=== PATIENT | female | born 1965 | race Caucasian/White ===

== ENCOUNTER 2019-11-16 14:25 | Outpatient (CLI) | payer MEDICAID, SELFPAY ==
[2019-11-16 15:54] LABS: Hemoglobin A1C 6.1 % (<5.7)
== END 2019-11-16 14:26 | disposition home or self-care (01) ==
LOC: ANHLAB 14:27
PROVIDERS: PCP Family Medicine; Visit Provider Family Medicine
DX: E11.9 Type 2 diabetes mellitus without complications (principal)
CPT/HCPCS: 36415; 83036

== ENCOUNTER 2019-12-03 14:32 | Outpatient (CLI) | payer MEDICAID, SELFPAY ==
--- NOTE | ~2019-12-03 | MR_ITS ---
EXAMINATION: MR brain/brain stem wo con EXAM DATE: 12/03/2019 15:23 INDICATION: Gait abnormality. TECHNIQUE: Magnetic resonance imaging (MRI) of the brain/brain stem obtained without contrast. Sagitt al T1, axial diffusion, gradient echo (T2*), T1, T2, FLAIR sequences obtained. There is no prior st udy for comparison. FINDINGS: Several small white matter T2 signal hyperintensities probably minimal microangiopathy. The re are no areas of restricted diffusion to suggest acute infarction. There is no acute hemorrhage se en on the T2*, a hemosiderin sensitive sequence. No intraparenchymal brain mass. The ventricles are normal in size. There are no extra-axial collections. Flow voids are seen in the cerebral arteries on the T2-weighted sequences consistent with their expected patency. The orbits are unremarkable. S oft tissue is unremarkable. Small left maxillary sinus retention cyst. IMPRESSION: Several small nonspecific white matter signal hyperintensities most likely minimal microa ngiopathy. Reviewed, dictated and finalized at location A. [employer] IMPRESSION: Several small nonspecific white matter signal hyperintensities most likely minimal microangiopathy.
== END 2019-12-03 14:33 | disposition home or self-care (01) ==
PROVIDERS: PCP Family Medicine; Visit Provider Family Medicine
DX: R26.89 Other abnormalities of gait and mobility (principal); R41.3 Other amnesia
CPT/HCPCS: 70551

== ENCOUNTER 2021-01-04 12:01 | Emergency (ER) | payer MEDICAID, SELFPAY ==
--- NOTE | ~2021-01-04 | XR_ITS ---
EXAMINATION: XR chest 1V portable DATE: 01/04/2021 12:29 INDICATION: Body aches TECHNIQUE: frontal view of the chest was obtained. COMPARISON: Chest radiograph dated 05/05/2015 FINDINGS: Minimal streaky angular atelectasis at the left costophrenic angle. No other airspace opacities, pulm onary edema, pleural effusion or pneumothorax. The cardiomediastinal silhouette is normal. Mild thora cic spondylosis. IMPRESSION: 1. Mild lingular atelectasis. Reviewed, dictated and finalized at location A.
[2021-01-04 12:03] VITALS: BP 142/70; PULSE 83; RESP 20; TEMP 36.6; O2SAT 99
--- NOTE | 2021-01-04 12:27 | ED.GENADULT ---
HPI - General Adult General Chief complaint: Unspecified Stated complaint: not feeling well Time Seen by Provider: 01/04/21 12:16 Source: patient Mode of arrival: ambulatory Limitations: no limitations History of Present Illness HPI narrative: Patient is 55 years old white female drove herself to the emergency room, complaining of general body aches, started 7 days ago, worse lately. Patient reports her symptoms get worse with standing and better at rest. Patient denies any fever, chills, nausea, vomiting, diarrhea, chest pain, shortness of breath, exposure to anybody having similar symptoms, exposure to anybody with COVID-19 infection. Related Data Allergies Allergy/AdvReac Type Severity Reaction Status Date / Time latex Allergy Intermediate RASH,ITCHIN Verified 01/04/21 12:09 G Review of Systems Review of Systems: Narrative: CONSTITUTIONAL: Denies fever, chills, or sweats. EYES: Denies visual changes, redness, or discharge. ENT: Denies rhinorrhea, congestion, sore throat, or otalgia. CARDIOVASCULAR: Denies chest pain, palpitations, or edema. RESPIRATORY: Denies cough or dyspnea. GASTROINTESTINAL: Denies abdominal pain, nausea, vomiting, or diarrhea. GENITOURINARY: Denies dysuria or hematuria. SKIN: Denies rash or itching. MUSCULOSKELETAL: Denies back pain, joint pain, or myalgia. NEUROLOGIC: Denies headache, numbness, or weakness. PSYCHIATRIC: Denies anxiety or depression. PMFSH Surgical History Surgical History History of bilateral mastectomy (~11/24/15) History of hysterectomy History of tonsillectomy Hx of cholecystectomy Family History Family History Father Diabetes mellitus Mother Diabetes mellitus Other Hypertension Social History Social History Smoking status: Never smoker Alcohol intake: never Exam Narrative: Exam Narrative: General appearance: Well-developed, well-nourished Skin: Normal color Head: Normocephalic, nontraumatic Eyes: Clear conjunctiva ENT: Oropharynx normal, ears normal, nose normal, left lower wisdom tooth impacted surrounded by erythematous gum and diffuse tenderness, no abscess. Neck: Supple, nontender Chest and respiratory: Airway patent, no respiratory distress, no accessory muscle use Heart: Regular rate/rhythm Abdomen: Soft, nontender, no organomegaly, quiet bowel sounds Vascular: Normal peripheral pulses, normal capillary refill. 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 Physical exam showed infected left lower wisdom tooth which high likely the underlying cause of patient's symptoms. Labs, chest x-ray, UA ordered. Further plan to follow Differential Diagnosis Differential Diagnosis: Infected tooth, viral infection, urinary tract infection, depression Vital Signs Vital Signs: Vital Signs Temperature 36.6 C 01/04/21 12:03 Pulse Rate 83 01/04/21 12:03 Respir
[2021-01-04 12:42] LABS: Basophils Percent Auto 0.6 % (0.2-1.2); Eosinophils Absolute Auto 0.1 K/mm3 (0-0.3); Hematocrit 41.9 % (37.0-47.0); Immature Granulocyte Absolute 0.04 K/mm3 (0.00-0.031); Immature Granulocyte Percent A 0.6 % (0-0.5); Lymphocytes Absolute Auto 2.49 K/mm3 (0.9-3.2); Lymphocytes Percent Auto 39.1 % (18.3-44.2); Mean Corpuscular HGB Conc 33.4 g/dl (32-36); Mean Corpuscular Hemoglobin 28.7 pg (26-34); Mean Corpuscular Volume 85.9 fl (80-100); Mean Platelet Volume 9.4 fl (7.4-10.4); Monocytes Absolute Auto 0.4 K/mm3 (0.1-0.6); Neutrophils Absolute Auto 3.3 K/mm3 (1.3-6.7); Neutrophils Percent Auto 51.7 % (45.5-73.1); Platelet Count Result 262 k/mm3 (150-375); Red Blood Count 4.88 M/mm3 (4.2-5.4); Red Cell Distribution Width 12.1 % (11.5-14.5); White Blood Count 6.4 K/mm3 (4.5-10.0)
[2021-01-04 12:56] LABS: Potassium 3.6 mmol/L (3.4-5.0)
[2021-01-04 12:59] LABS: Add Urine Microscopic? YES; Appearance Urine Clear (Clear); Bacteria Urine Trace /hpf; Bilirubin Urine Negative (Negative); Blood Urine Negative (Negative); Color Urine Yellow (Yellow); Glucose Urine UA Negative (Negative); Ketones Urine Negative (Negative); Leukocyte Esterase Ur Trace LEU/UL (Negative); Mucus Urine Moderate /lpf; Nitrate Urine Negative (Negative); Protein Urine Negative (Negative); RBC Urine 0-2 /hpf (0-2); Specific Grav Ur 1.017 (1.001-1.035); Squamous Epithelial Cell Urine Rare /hpf (Few); Urobilinogen Urine Negative mg/dL (<2.0); WBC Urine 0-3 /hpf
[2021-01-04 13:19] LABS: Alanine Aminotransferase 20 U/L (4-35); Albumin Level 4.3 g/dL (3.5-5.1); Alkaline Phosphatase 70 U/L (38-126); Anion Gap 8 mmol/L (8-16); Aspartate Amino Transferase 26 U/L (14-36); Bilirubin,Total 0.6 mg/dL (0.2-1.3); Blood Urea Nitrogen 13 mg/dL (7-17); Calcium 9.7 mg/dL (8.4-10.2); Carbon Dioxide 25 mmol/L (22-30); Chloride 108 mmol/L (98-107); Estimated CRCL calculation 91 ml/min; Estimated Glomerular Filt Rate > 60; Glucose 179 mg/dL (65-105); Sodium 141 mmol/L (137-145)
[2021-01-04 13:38] VITALS: BP 139/86; PULSE 88; RESP 17; O2SAT 98
== END 2021-01-04 13:52 | disposition home or self-care (01) ==
PROVIDERS: Emergency Provider Emergency Medicine; PCP Family Medicine
DX: K04.7 Periapical abscess without sinus (principal); Z90.13 Acquired absence of bilateral breasts and nipples
CPT/HCPCS: 36415; 71045; 80053; 81001; 85025; 99283

== ENCOUNTER 2021-03-01 15:05 | Emergency (ER) | payer MEDICAID, SELFPAY ==
--- NOTE | 2021-03-01 15:19 | ED.DENTAL ---
HPI - Dental/Oral General Chief complaint: Dental/Oral Stated complaint: Mouth complaint Source: patient and RN notes reviewed Limitations: no limitations History of Present Illness HPI Narrative: The patient, non-smoker/nondrinker with a pending trip to [place], presents with tooth ache. Patient states last week she had bilateral wisdom tooth extractions, for which she was given oxycodone [that she did not take, concerned about side effects]. She complains of a couple day history of definite left lower jaw swelling and pain that is mild, worse with eating, asymmetric/unlike other side. No fever, hoarseness, trismus; discussed should follow-up with dentist [inc for dry socket]. Also, will provide milder pain medication. Related Data Allergies Allergy/AdvReac Type Severity Reaction Status Date / Time latex Allergy Intermediate RASH,ITCHIN Verified 01/04/21 12:09 G Review of Systems Review of Systems: Narrative: General/Constitutional: No weight loss,fever Eyes: N0: Redness,discharge Ears/Nose/Throat: No: Epistaxis,ear discharge Respiratory: Denies: Hemoptysis Gastrointestinal: No Vomiting, Bleeding-rectal Skin: No Lumps, eruption Neurologic: No Focal Weakness,Sz Hematologic: Denies: Petechiae/Purpura Psychiatric: No: Suicida ideationl All Other Systems: Reviewed and Negative [facility] Surgical History Surgical History History of bilateral mastectomy (~11/24/15) History of hysterectomy History of tonsillectomy Hx of cholecystectomy Family History Family History Father Diabetes mellitus Mother Diabetes mellitus Other Hypertension Social History Social History Smoking status: Never smoker Alcohol intake: never Comments At time of signature, agree with nursing past medical, surgical, social and family history. There is no relevant family history pertinent to the presenting complaint Exam Narrative: Exam Narrative: General Appearance: Well appearing, , Conjunctiva clear Ears: External ear normal, Auditory canal normal Nose: Normal nose Mouth/Throat: Nl appearing (with mild left lower jaw swelling, no dry socket seen), Normal lips, MM moist, Uvula midline (scattered dental caries and fillings,) Neck: Supple, No adenopathy Respiratory: Airway patent, No respiratory distress, Musculoskeletal: Full ROM, Non tender, Normal strength Spine/Back: Normal ROM Skin: Warm, Dry, Normal color Neurological: A&O x3, Speech clear, CN II-XII intact Psychiatric: Normal mood, dulled affect Course Vital Signs Vital signs: Vital Signs Temperature 98.3 F 03/01/21 15:20 Pulse Rate 87 03/01/21 15:20 Respiratory Rate 16 03/01/21 15:20 Blood Pressure 130/76 03/01/21 15:20 Pulse Oximetry 99 03/01/21 15:20 Temperature 98.3 F 03/01/21 15:20 Pulse Rate 87 03/01/21 15:20 Respiratory Rate 16 03/01/21 15:20 Blood Pressure 130/76 03/01/21 15:20 Pulse Oximetry 99 03/01/21 15:20 Discharge Plan Discharge Clinical Impression: Toothache Patient Disposition: Home, Self-Care Condition: Stable Instructions: Antibiotic Form, Toothache (ED) Additional Instructions: See your dentist in follow-up Do not take Tylenol with codeine with any other opiate-like medications [oxycodone, Vicodin, hydrocodone, etc.] Prescriptions: New acetaminophen-codeine 300-30 mg tablet 1 tablet PO HS PRN (Reason: pain) Qty: 10 RF: 0 lidocaine HCl [Lidocaine Viscous] 2 % solution 5 ml MUCOUS MEM QID PRN (Reason: pain) Qty: 100 RF: 0 amoxicillin 875 mg tablet 875 mg PO Q12H Qty: 14 RF: 0 No Action metformin 500 mg tablet extended release 24 hr 500 mg PO DAILY Qty: 30 RF: 6 paroxetine HCl 20 mg tablet See Rx Instructions .ROUTE .COMPLEX Qty: 180 RF: 0 trazodone 50 mg tablet See Rx Instructions .
[2021-03-01 15:20] VITALS: BP 130/76; PULSE 87; RESP 16; TEMP 36.8; O2SAT 99
== END 2021-03-01 15:27 | disposition home or self-care (01) ==
PROVIDERS: Emergency Provider Emergency Medicine; PCP Family Medicine
DX: K08.89 Other specified disorders of teeth and supporting structures (principal); Z90.13 Acquired absence of bilateral breasts and nipples; G47.30 Sleep apnea, unspecified; E11.9 Type 2 diabetes mellitus without complications; F41.9 Anxiety disorder, unspecified; F32.9 Major depressive disorder, single episode, unspecified
CPT/HCPCS: 99213; G0463

== ENCOUNTER 2021-03-13 16:08 | Outpatient (CLI) | payer MEDICAID, SELFPAY ==
[2021-03-13 16:45] LABS: Cholesterol 178 mg/dL (0-200); HDL Direct 60 mg/dL; Triglycerides 229 mg/dL (<150)
[2021-03-13 16:56] LABS: LDL Cholesterol Direct 80 mg/dL
[2021-03-13 17:53] LABS: Hemoglobin A1C 5.9 % (<5.7)
== END 2021-03-13 16:09 | disposition home or self-care (01) ==
LOC: ANHLAB 16:10
PROVIDERS: PCP Family Medicine; Visit Provider Family Medicine
DX: E11.8 Type 2 diabetes mellitus with unspecified complications (principal)
CPT/HCPCS: 36415; 80061; 83036

== ENCOUNTER → 2021-05-08 06:56 | Outpatient (CLI) | payer MEDICAID, SELFPAY ==
[2021-05-08 17:52] LABS: SARS-CoV-2 RNA PCR Negative
== END ==
PROVIDERS: PCP Family Medicine; Visit Provider Family Medicine
DX: J02.9 Acute pharyngitis, unspecified (principal); R05 Cough; R51.9 Headache, unspecified; Z20.822 Contact with and (suspected) exposure to COVID-19
CPT/HCPCS: C9803; U0003; U0005

== ENCOUNTER 2021-09-14 15:04 | Outpatient (CLI) | payer MEDICAID, SELFPAY ==
[2021-09-14 15:44] LABS: Hemoglobin A1C 5.9 % (<5.7)
== END 2021-09-14 15:05 | disposition home or self-care (01) ==
PROVIDERS: PCP Family Medicine; Visit Provider Family Medicine
DX: E11.8 Type 2 diabetes mellitus with unspecified complications (principal)
CPT/HCPCS: 36415; 83036

== ENCOUNTER 2022-03-12 15:41 | Outpatient (CLI) | payer MEDICAID, SELFPAY | END 2022-03-12 15:42 | disposition home or self-care (01) | LOC: ANHLAB 15:42 | PROVIDERS: PCP Family Medicine; Visit Provider Family Medicine | DX: Z51.81 Encounter for therapeutic drug level monitoring (principal); Z79.899 Other long term (current) drug therapy; E11.8 Type 2 diabetes mellitus with unspecified complications | CPT/HCPCS: 36415; 83036 ==

== ENCOUNTER 2022-11-14 17:57 | Emergency (ER) | payer MEDICAID, SELFPAY ==
--- NOTE | 2022-11-14 18:03 | ED.URI ---
HPI - URI/Sore Throat General Chief Complaint: Upper Respiratory Infection Stated Complaint: cold/flu Source: patient and RN notes reviewed Mode of arrival: ambulatory Limitations: no limitations History of Present Illness HPI Narrative: 57-year-old female presents with concern for headache, sore throat, runny nose, body aches, cough. She reports she was exposed to COVID, she took a COVID test today that was negative. MD elicited complaint: cough and sore throat Related Data Allergies Allergy/AdvReac Type Severity Reaction Status Date / Time latex Allergy Intermediate RASH,ITCHIN Verified 02/08/22 14:55 G Review of Systems Review of Systems: CONSTITUTIONAL: Reports malaise, low-grade fever. EYES: Denies visual changes, redness, or discharge. ENT: Reports rhinorrhea, congestion, sore throat. Denies sinus pain, otalgia CARDIOVASCULAR: Denies chest pain, palpitations, or edema. RESPIRATORY: Reports cough. Denies dyspnea. GASTROINTESTINAL: Denies abdominal pain, nausea, vomiting, diarrhea SKIN: Denies rash or itching. MUSCULOSKELETAL: Reports myalgia. NEUROLOGIC: Reports headache. All systems reviewed & are unremarkable except as noted in HPI and below [facility] Surgical History Surgical History History of bilateral mastectomy (~11/24/15) History of hysterectomy History of tonsillectomy Hx of cholecystectomy Family History Family History Father Diabetes mellitus Mother Diabetes mellitus Other Hypertension Social History Social History Alcohol intake: never Comments At time of signature, agree with nursing past medical, surgical, social and family history. There is no relevant family history pertinent to the presenting complaint Exam Narrative: GENERAL: Nontoxic-appearing EYES: PERRLA, conjunctivae clear ENT: Nares clear, clear discharge. Mucous membranes moist. TM pearly duke with dull light reflex bilaterally; no tragal tenderness. Oropharynx erythematous without lesions. Tonsils not enlarged and without exudate, no drooling, no hoarseness, no trismus, uvula midline. NECK: Supple. No lymphadenopathy CHEST: Clear to auscultation, breath sounds equal. No wheezing, rhonchi, rales, or stridor. No respiratory distress, speaks in full sentences. HEART: Regular rate and rhythm. No murmur heard. SKIN: Warm, dry, no rash. NEURO: Alert and oriented x3. PSYCH: Normal mood and affect Course Course Emergency Course: Patient is aware of diagnosis, understands and agrees to treatment plan. Anticipatory guidance given. Patient agrees to follow-up as directed and is aware of reasons to seek care at the emergency department. Portions of this record may have been created with voice recognition software Level of Care: Express Care Visit Vital Signs Vital signs: Reviewed. MDM - URI/Sore Throat MDM Narrative Medical decision making narrative: Differential diagnosis considered: Irizarry virus, strep pharyngitis, allergic rhinitis, upper respiratory tract infection, sinusitis, rhinosinusitis, nasopharyngitis. viral pharyngitis, otitis media, otitis externa, pneumonia, bronchitis, viral cough syndrome, viral syndrome, and influenza. Exam findings show no acute concerns or changes; patient is non-toxic appearing and is in no distress. Patient is appropriate for outpatient treatment and follow-up. Lab Data Attestation: I reviewed the patient's lab results. Critical Care Time Critical Care Time Critical Care Time: No Discharge Plan Discharge Clinical Impression: Upper respiratory infection Patient Disposition: Home, Self-Care Condition: Stable Instructions: Upper Respiratory Infection (ED) Additional Instructions: Your rapid influenza test negative. Because you are exposed to COVID, you should retest yourself 5 days after exposure. Your r
[2022-11-14 18:06] VITALS: BP 138/84; PULSE 85; RESP 16; TEMP 37.1; O2SAT 98
== END 2022-11-14 18:40 | disposition home or self-care (01) ==
PROVIDERS: Emergency Provider Nurse Practitioner; PCP Family Medicine
DX: J06.9 Acute upper respiratory infection, unspecified (principal); G47.30 Sleep apnea, unspecified; E11.9 Type 2 diabetes mellitus without complications; N80.9 Endometriosis, unspecified; Z90.722 Acquired absence of ovaries, bilateral; Z90.13 Acquired absence of bilateral breasts and nipples
CPT/HCPCS: 87081; 87804; 87880; 99213; G0463

== ENCOUNTER 2022-11-22 15:59 | Outpatient (CLI) | payer MEDICAID, SELFPAY ==
[2022-11-22 20:52] LABS: Creatinine Urine 331.2 mg/dL
[2022-11-22 20:56] LABS: MALB Creatinine Ratio 9.9 mg/g (0-30); Microalbumin Urine Random 32.9 mg/L (0-16.7)
[2022-11-22 21:44] LABS: Basophils Absolute Auto 0.1 K/mm3 (0.0-0.1); Basophils Percent Auto 0.6 % (0.2-1.2); Eosinophils Absolute Auto 0.2 K/mm3 (0-0.3); Eosinophils Percent Auto 1.8 % (0-4.4); Hemoglobin 14.4 g/dL (12.0-15.0); Immature Granulocyte Absolute 0.04 K/mm3 (0.00-0.031); Immature Granulocyte Percent A 0.4 % (0-0.5); Lymphocytes Absolute Auto 4.17 K/mm3 (0.9-3.2); Lymphocytes Percent Auto 42.2 % (18.3-44.2); Mean Corpuscular Hemoglobin 28.4 pg (26-34); Mean Corpuscular Volume 88.8 fl (80-100); Monocytes Absolute Auto 0.8 K/mm3 (0.1-0.6); Monocytes Percent Auto 7.7 % (2.6-8.5); Neutrophils Absolute Auto 4.7 K/mm3 (1.3-6.7); Neutrophils Percent Auto 47.3 % (45.5-73.1); Platelet Count Result 334 k/mm3 (150-375); Red Blood Count 5.07 M/mm3 (4.2-5.4); Red Cell Distribution Width 12.4 % (11.5-14.5); White Blood Count 9.9 K/mm3 (4.5-10.0)
[2022-11-22 22:48] LABS: Alanine Aminotransferase 21 U/L (6-35); Albumin Level 4.7 g/dL (3.5-5.1); Alkaline Phosphatase 86 U/L (38-126); Anion Gap 8 mmol/L (8-16); Aspartate Amino Transferase 24 U/L (14-36); Bilirubin,Total 0.7 mg/dL (0.2-1.3); Blood Urea Nitrogen 19 mg/dL (7-17); Calcium 9.8 mg/dL (8.4-10.2); Carbon Dioxide 26 mmol/L (22-30); Chloride 103 mmol/L (98-107); Cholesterol 203 mg/dL (0-200); Estimated Glomerular Filt Rate > 60; Glucose 84 mg/dL (65-110); HDL Direct 53 mg/dL; Potassium 4.3 mmol/L (3.4-5.0); Sodium 137 mmol/L (137-145); Triglycerides 269 mg/dL (<150)
[2022-11-22 22:59] LABS: LDL Cholesterol Direct 101 mg/dL
[2022-11-23 11:39] LABS: Hemoglobin A1C 5.9 % (<5.7)
== END 2022-11-22 16:00 | disposition home or self-care (01) ==
LOC: ANHGOSHLAB 16:00
PROVIDERS: PCP Internal Medicine; Visit Provider Internal Medicine
DX: C50.919 Malignant neoplasm of unspecified site of unspecified female breast (principal); E11.9 Type 2 diabetes mellitus without complications; F32.9 Major depressive disorder, single episode, unspecified
CPT/HCPCS: 36415; 80053; 80061; 82043; 83036; 85025

== ENCOUNTER 2023-01-29 11:09 | Emergency (ER) | payer MEDICAID, SELFPAY ==
[2023-01-29 11:14] VITALS: BP 141/72; PULSE 85; RESP 16; TEMP 36.8; O2SAT 100
--- NOTE | 2023-01-29 11:54 | ED.DENTAL ---
HPI - Dental/Oral General Chief complaint: Dental/Oral Stated complaint: tooth pain Time Seen by Provider: 01/29/23 11:55 Source: patient, RN notes reviewed and old records reviewed Mode of arrival: ambulatory Limitations: no limitations History of Present Illness HPI Narrative: 57 year old female presents to [facility] care with complaints of dental pain to left upper molar for about one year duration which will flare up at intervals, Patient reports that pain has been present for about one week in durations and has been taking some Tylenol and Ibuprofen for her discomfort. Patient reports no difficulty with swallowing or eith her breathing, no facial swelling noted, no fevers or trismus noted. Patient reports that she has appointment on in [facility] for dental care. MD Complaint: tooth pain Location: Tooth # (14) Onset (ago): week(s) (increased symptoms for 1 week) Severity scale (1-10): 4 Treatment prior to arrival: oral analgesic Related Data Allergies Allergy/AdvReac Type Severity Reaction Status Date / Time Antihistamines - Alkylamine Allergy Intermediate jittery Verified 01/29/23 11:17 latex Allergy Intermediate RASH,ITCHIN Verified 01/29/23 11:17 G Review of Systems Review of Systems: CONSTITUTIONAL: Denies fever, chills, or sweats. ENT: Denies rhinorrhea, congestion, sore throat, or otalgia. Reports dental pain CARDIOVASCULAR: Denies chest pain, palpitations, or edema. RESPIRATORY: Denies cough or dyspnea. SKIN: Denies rash or itching. MUSCULOSKELETAL: Denies myalgia. NEUROLOGIC: Denies headache All systems reviewed & are unremarkable except as noted in HPI and below PMFSH Past Medical History Medical History Diabetes type 2, controlled History of breast cancer in adulthood Surgical History Surgical History History of bilateral mastectomy (~11/24/15) History of hysterectomy History of tonsillectomy Hx of cholecystectomy Family History Family History Father Diabetes mellitus Mother Diabetes mellitus Other Hypertension Social History Social History Smoking status: Never smoker Alcohol intake: never Lack of Transportation: No Lack of Food: Never True Current Housing: I Have Housing Concerned About Future Housing: No Difficulty Paying Gas/Electric Bills: No Difficulty Paying for Meds: No Currently Unemployed: No Education: High School Diploma/GED Difficulty w/ Childcare or Family Care: No Comments At time of signature, agree with nursing past medical, surgical, social and family history. There is no relevant family history pertinent to the presenting complaint Exam Narrative: GENERAL: Well-appearing, well-nourished, and in no acute distress. HEAD: Normocephalic, atraumatic. EYES: PERRLA and EOMI. ENT: Nares clear, no rhinorrhea or epistaxis. Mucous membranes moist. Caries noted pain to #14 tooth, no swelling or drainage of gum around tooth, no trismus or Hossein angina NECK: Supple. no lymphadenopathy CHEST: Clear to auscultation. No respiratory distress.SAO2 100% on room air HEART: Regular rate and rhythm. No murmur heard. Normal peripheral pulses. SKIN: Warm, dry, no rash. NEURO: No focal deficits. Alert and oriented x3. Course Course Emergency Course: Patient is aware of diagnosis, understands and agrees to treatment plan. Anticipatory guidance given. Patient agrees to follow-up as directed and is aware of reasons to seek care at the emergency department. Portions of this record may have been created with voice recognition software Level of Care: Express Care Visit Vital Signs Vital signs: Vital Signs Temperature 36.8 C 01/29/23 11:14 Pulse Rate 85 01/29/23 11:14 Respiratory Rate 16 01/29/23 11:14 Blood Pressure 141/7
== END 2023-01-29 12:06 | disposition home or self-care (01) ==
PROVIDERS: Emergency Provider Registered Nurse; PCP Internal Medicine
DX: K08.89 Other specified disorders of teeth and supporting structures (principal); E11.9 Type 2 diabetes mellitus without complications; Z85.3 Personal history of malignant neoplasm of breast; Z90.13 Acquired absence of bilateral breasts and nipples
CPT/HCPCS: 99213; G0463

== ENCOUNTER 2023-02-17 11:48 | Outpatient (CLI) | payer MEDICAID, SELFPAY ==
[2023-02-17 12:47] LABS: Basophils Percent Auto 0.6 % (0.2-1.2); Eosinophils Absolute Auto 0.1 K/mm3 (0-0.3); Eosinophils Percent Auto 2.3 % (0-4.4); Hemoglobin 13.8 g/dL (12.0-15.0); Immature Granulocyte Absolute 0.01 K/mm3 (0.00-0.031); Immature Granulocyte Percent A 0.2 % (0-0.5); Lymphocytes Absolute Auto 2.77 K/mm3 (0.9-3.2); Lymphocytes Percent Auto 44.7 % (18.3-44.2); Mean Corpuscular HGB Conc 32.1 g/dl (32-36); Mean Corpuscular Hemoglobin 28.6 pg (26-34); Mean Corpuscular Volume 89.2 fl (80-100); Mean Platelet Volume 9.7 fl (7.4-10.4); Monocytes Absolute Auto 0.6 K/mm3 (0.1-0.6); Monocytes Percent Auto 8.9 % (2.6-8.5); Neutrophils Absolute Auto 2.7 K/mm3 (1.3-6.7); Neutrophils Percent Auto 43.3 % (45.5-73.1); Platelet Count Result 241 k/mm3 (150-375); Red Blood Count 4.82 M/mm3 (4.2-5.4); Red Cell Distribution Width 12.4 % (11.5-14.5); White Blood Count 6.2 K/mm3 (4.5-10.0)
[2023-02-17 19:34] LABS: Alanine Aminotransferase 24 U/L (6-35); Albumin Level 4.4 g/dL (3.5-5.1); Alkaline Phosphatase 60 U/L (38-126); Anion Gap 8 mmol/L (8-16); Aspartate Amino Transferase 50 U/L (14-36); Bilirubin,Total 0.8 mg/dL (0.2-1.3); Blood Urea Nitrogen 17 mg/dL (7-17); Calcium 9.6 mg/dL (8.4-10.2); Carbon Dioxide 27 mmol/L (22-30); Chloride 105 mmol/L (98-107); Estimated Glomerular Filt Rate > 60; Glucose 132 mg/dL (65-110); Potassium 3.7 mmol/L (3.4-5.0); Sodium 140 mmol/L (137-145)
== END 2023-02-17 11:49 | disposition home or self-care (01) ==
LOC: ANHGOSHLAB 11:50
PROVIDERS: PCP Internal Medicine; Visit Provider Clinical Nurse Specialist
DX: E11.8 Type 2 diabetes mellitus with unspecified complications (principal)
CPT/HCPCS: 36415; 80053; 85025

== ENCOUNTER 2023-02-23 15:38 | Outpatient (CLI) | payer MEDICAID, SELFPAY ==
--- NOTE | ~2023-02-23 | US_ITS ---
EXAMINATION: US axilla RT INDICATION: Patient with right axillary pain status post bilateral mastectomy. TECHNIQUE: Limited ultrasound of the right axilla was performed. COMPARISON: None available FINDINGS: No suspicious cystic or solid mass is identified in the right axilla to correlate with the patient's pain. IMPRESSION: 1. No specific sonographic correlate is identified for the reported palpable abnormality of concern. Further evaluation at this time should be based on clinical assessment. Continued follow-up physical examination is recommended. BI-RADS Category 1: Negative Reviewed, dictated and finalized at location A. IMPRESSION: 1. No specific sonographic correlate is identified for the reported palpable ab normality of concern. Further evaluation at this time should be based on clinic al assessment. Continued follow-up physical examination is recommended. BI-RADS Category 1: Negative
== END 2023-02-23 15:39 | disposition home or self-care (01) ==
PROVIDERS: PCP Internal Medicine; Visit Provider Clinical Nurse Specialist
DX: M79.629 Pain in unspecified upper arm (principal)
CPT/HCPCS: 76882

== ENCOUNTER 2023-06-24 14:39 | Outpatient (CLI) | payer MEDICAID, SELFPAY ==
--- NOTE | ~2023-06-24 | CT_ITS ---
EXAMINATION: CT soft tissue neck chest wo DATE: 06/24/2023 15:11 INDICATION: Right axillary mass. TECHNIQUE: Computed tomography (CT) of the neck and chest was performed without intravenous contrast. Automated exposure control and iterative reconstruction technique were employed. The dose-length pro duct was 712.93 mGy-cm. COMPARISON: Chest CT 05/01/2015 FINDINGS: CT NECK: There are no pathologically enlarged lymph nodes. There is moderate cervical spondylosis. CT CHEST: There is mild scarring at the lung apices. There are small pleural effusions. There is mild atelectasis bilaterally. A calcified right lung nodule and calcified subcarinal lymph nodes are cons istent with old granulomatous disease. The heart size is normal. There is a small pericardial effusio n. There is moderate thoracic spondylosis. IMPRESSION: 1. No right axillary mass. 2. Small pleural effusions. 3. Small pericardial effusion. Reviewed, dictated and finalized at location A.
== END 2023-06-24 14:40 | disposition home or self-care (01) ==
PROVIDERS: PCP Family Medicine; Visit Provider Family Medicine
DX: R05.3 Chronic cough (principal); R22.31 Localized swelling, mass and lump, right upper limb; Z85.3 Personal history of malignant neoplasm of breast; J90 Pleural effusion, not elsewhere classified; I31.39 Other pericardial effusion (noninflammatory)
CPT/HCPCS: 70490; 71250

== ENCOUNTER 2023-07-02 12:35 | Outpatient (CLI) | payer MEDICAID, SELFPAY ==
[2023-07-02 12:50] LABS: Basophils Absolute Auto 0.1 K/mm3 (0.0-0.1); Basophils Percent Auto 0.7 % (0.2-1.2); Eosinophils Absolute Auto 0.2 K/mm3 (0-0.3); Eosinophils Percent Auto 2.4 % (0-4.4); Hematocrit 42.5 % (37.0-47.0); Hemoglobin 13.8 g/dL (12.0-15.0); Immature Granulocyte Absolute 0.02 K/mm3 (0.00-0.031); Immature Granulocyte Percent A 0.3 % (0-0.5); Lymphocytes Absolute Auto 2.66 K/mm3 (0.9-3.2); Lymphocytes Percent Auto 39.2 % (18.3-44.2); Mean Corpuscular HGB Conc 32.5 g/dl (32-36); Mean Corpuscular Hemoglobin 28.9 pg (26-34); Mean Corpuscular Volume 88.9 fl (80-100); Mean Platelet Volume 9.5 fl (7.4-10.4); Monocytes Absolute Auto 0.5 K/mm3 (0.1-0.6); Neutrophils Absolute Auto 3.4 K/mm3 (1.3-6.7); Neutrophils Percent Auto 49.4 % (45.5-73.1); Platelet Count Result 259 k/mm3 (150-375); Red Blood Count 4.78 M/mm3 (4.2-5.4); Red Cell Distribution Width 12.2 % (11.5-14.5); White Blood Count 6.8 K/mm3 (4.5-10.0)
[2023-07-02 13:04] LABS: Alanine Aminotransferase 21 U/L (6-35); Albumin Level 4.3 g/dL (3.5-5.1); Alkaline Phosphatase 60 U/L (38-126); Anion Gap 7 mmol/L (8-16); Aspartate Amino Transferase 27 U/L (14-36); Bilirubin,Total 0.6 mg/dL (0.2-1.3); Blood Urea Nitrogen 14 mg/dL (7-17); Calcium 9.8 mg/dL (8.4-10.2); Carbon Dioxide 27 mmol/L (22-30); Chloride 107 mmol/L (98-107); Cholesterol 135 mg/dL (0-200); Estimated Glomerular Filt Rate > 60; Glucose 119 mg/dL (65-110); HDL Direct 65 mg/dL; Potassium 4.2 mmol/L (3.4-5.0); Sodium 141 mmol/L (137-145); Triglycerides 105 mg/dL (<150)
[2023-07-02 13:06] LABS: Hemoglobin A1C 5.9 % (<5.7)
[2023-07-02 13:11] LABS: Creatinine Urine 89.9 mg/dL
[2023-07-02 13:14] LABS: LDL Cholesterol Direct 59 mg/dL
[2023-07-02 13:59] LABS: MALB Creatinine Ratio 7.3 mg/g (0-30); Microalbumin Urine Random 6.6 mg/L (0-16.7)
[2023-07-02 14:02] LABS: Hepatitis C Virus Antibody Negative (Negative)
[2023-07-07 10:48] LABS: Immunoglobulin A 200 mg/dL (47-310); TTG IGA AB <1.0 U/mL (<15.0)
== END 2023-07-02 12:36 | disposition home or self-care (01) ==
PROVIDERS: PCP Family Medicine; Visit Provider Family Medicine
DX: Z11.59 Encounter for screening for other viral diseases (principal); R05.3 Chronic cough; E11.8 Type 2 diabetes mellitus with unspecified complications
CPT/HCPCS: 36415; 80053; 80061; 82043; 82607; 82784; 83036; 85025; 86364; 86803

== ENCOUNTER 2023-08-24 09:08 | Outpatient (CLI) | payer MEDICAID, SELFPAY ==
--- NOTE | 2023-08-24 09:20 | ECHO_ITS ---
Patient Info Name: Johnathon Jarrett Age: 58 years : 1965 Gender: Female Ht: 63 in Wt: 178 lbs BSA: 1.92 m2 HR: 69 bpm BP: 132 / 68 mmHg Technical Quality: Fair Exam Date: 08/24/2023 10:13 AM Exam Location: Echo Lab Patient Status: Outpatient Admit Date: 08/24/2023 Staff Ordering Physician: Johanne Haji MD [employer] Reeds Cutter: Dia Potter RDCS Attending Provider: Johanne Haij MD Referring Physician: Raissa BROWN; Exam Type: CA echo doppler color flow Study Info Indications - chronic cough hx/o breast ca chemo bilateral mastectomy Complete two-dimensional, color flow and Doppler transthoracic echocardiogram is performed. Summary 1. Complete two-dimensional, color flow and Doppler transthoracic echocardiogram is performed. 2. Left ventricular chamber dimension is normal. 3. Left ventricular systolic function is normal, estimated at 60-65%. 4. The left ventricular diastolic function is grade I diastolic dysfunction. 5. E/e' 11 is mildly elevated. 6. Global longitudinal strain is normal at -18.7%. 7. There is mild aortic valve sclerosis. 8. There is trace mitral valve regurgitation. 9. There is trace tricuspid valve regurgitation. 10. No pulmonary hypertension, estimated pulmonary arterial systolic pressure is 31 mmHg. Left Ventricle E/e' 11 is mildly elevated. Global longitudinal strain is normal at -18.7%. Left ventricular chamber dimension is normal. Left ventricular systolic function is normal, estimated at 60-65%. The left ventricular diastolic function is grade I diastolic dysfunction. Right Ventricle Right ventricular chamber dimension is normal. Right ventricular systolic function is normal. Left Atria Left atrial chamber dimension is normal. Right Atria Right atrial chamber dimension is normal. Aortic Valve The aortic valve is trileaflet. There is mild aortic valve sclerosis. There is no aortic valve stenosis. There is no aortic valve regurgitation. Pulmonic Valve There is no pulmonic regurgitation. Mitral Valve There is no mitral valve stenosis. There is trace mitral valve regurgitation. Tricuspid Valve There is trace tricuspid valve regurgitation. No pulmonary hypertension, estimated pulmonary arterial systolic pressure is 31 mmHg. Pericardium/Pleural There is no pericardial effusion. Inferior Vena Cava Normal inferior vena cava with >50% collapse upon inspiration consistent with normal right atrial pressure, 5 mmHg. Aorta The aortic root size at the sinus of Valsalva is normal. Left Ventricular Outflow Tract Name Value Normal LVOT 2D LVOT Diameter 2.0 cm LVOT Doppler LVOT Peak Gradient 5 mmHg LVOT Mean Gradient 3 mmHg LVOT VTI 26 cm LVOT VTI/AV VTI Ratio 0.9 LVOT Stroke Volume 80 ml LVOT CO 15.7 l/min LVOT CI 8.1 l/min/m2 Pulmonic Valve Name Value Normal
--- NOTE | 2023-08-24 11:40 | WPDPFTINT ---
PFT Procedure Performed PFT Procedure Performed Spirometry with Pre/Post Bronchodilator Plethysmography (Lung Vol) Diffusing Cap (DLCO) Flow Vol Loop PFT Interpretation This is a pulmonary function test with pre and post-bronchodilator spirometry, plethysmography and diffusing capacity. The test was performed and results interpreted in accordance with the 2019 and 2005 ATS/ERS Task Force guidelines respectively using the Global Lung Function Initiative-2012 reference equations. Patient demonstrated good effort and cooperation. Reproducibility criteria were met. The quality of the pre bronchodilator spirometry maneuver was Grade A and post bronchodilator spirometry maneuver was Grade A. Of note the patient had persistent coughing during the testing. Findings: Spirometry: The contour of the expiratory flow tracing demonstrates a mid expiratory plateau called a knee pattern in 3 of the 4 pre bronchodilator maneuvers and this is more pronounced in all 3 of the post bronchodilator maneuvers. The contour the inspiratory flow tracing is normal. The pre bronchodilator FVC is 2.78 L, 89% predicted. The pre bronchodilator FEV1 is 1.98 L, 79% predicted. The pre bronchodilator FEV1: FVC ratio is 71%. The post bronchodilator FVC is 2.74 L, representing a 2% decrease. The post bronchodilator FEV1 is 2.04 L, representing a 3% increase. The post bronchodilator FEV1: FVC ratio 75%. Plethysmography: The total lung capacity is 4.78 L, 98% predicted. The functional residual capacity is 2.36 L, 86% predicted. The residual volume is 1.94 L, 103% predicted. Diffusing capacity: The diffusing capacity unadjusted for hemoglobin and carboxyhemoglobin is 16.7, 78% predicted. The diffusing capacity adjusted for alveolar volume is 3.99, 88% predicted. Impression: With expiratory flow tracing demonstrates a reproducible knee pattern which is more pronounced in the post bronchodilator maneuvers. The knee pattern can be a normal variant or pathologic and has been attributed to a choke point section of the bronchial tree. The normal variant is more common in younger female patients, decreases with age and is more pronounced in the post bronchodilator efforts. The pattern has also been described with kyphosis, kyphoscoliosis, central obstructing mass, and post lung transplantation. Otherwise, the spirometry is normal without evidence of an obstructive abnormality. There is no significant improvement after inhaling a single dose of albuterol. The lung volumes are normal. The diffusing capacity is normal. There are no prior studies for comparison
== END 2023-08-24 09:09 | disposition home or self-care (01) ==
LOC: ANHPFT 09:11
PROVIDERS: PCP Family Medicine; Visit Provider Family Medicine
DX: I31.39 Other pericardial effusion (noninflammatory) (principal); Z90.10 Acquired absence of unspecified breast and nipple; R93.1 Abnormal findings on diagnostic imaging of heart and coronary circulation; I35.8 Other nonrheumatic aortic valve disorders; I34.0 Nonrheumatic mitral (valve) insufficiency; I07.1 Rheumatic tricuspid insufficiency; Z85.3 Personal history of malignant neoplasm of breast
CPT/HCPCS: 93306; 94060; 94726; 94729

== ENCOUNTER 2023-08-27 10:04 | Emergency (ER) | payer SELFPAY ==
[2023-08-27 10:09] VITALS: BP 132/78; PULSE 89; RESP 16; TEMP 37; O2SAT 97
--- NOTE | 2023-08-27 10:25 | ED.URI ---
HPI - URI/Sore Throat General Chief Complaint: Upper Respiratory Infection Stated Complaint: Fever/Congestion History of Present Illness HPI Narrative: Patient presents with nasal congestion loose cough no shortness of breath no chest pain and sore throat. No trouble swallowing no drooling. Patient states she is not taking [id number] for her symptoms. Related Data Home Medications Medication Instructions Recorded Confirmed paroxetine HCl 20 mg tablet mg PO 08/27/23 Allergies Allergy/AdvReac Type Severity Reaction Status Date / Time Antihistamines - Alkylamine Allergy Intermediate jittery Verified 06/15/23 15:38 latex Allergy Intermediate RASH,ITCHIN Verified 06/15/23 15:38 G Review of Systems Review of Systems: CONSTITUTIONAL: Denies chills, or sweats. Reports fever and generalized body aches EYES: Denies visual changes, redness, or discharge. ENT: Denies otalgia. Reports nasal congestion runny nose and sore throat CARDIOVASCULAR: Denies chest pain, palpitations, or edema. RESPIRATORY: Denies dyspnea. Reports occasional cough GASTROINTESTINAL: Denies abdominal pain, nausea, vomiting, or diarrhea. GENITOURINARY: Denies dysuria or hematuria. SKIN: Denies rash or itching. MUSCULOSKELETAL: Denies back pain, joint pain, or myalgia. Reports generalized body aches NEUROLOGIC: Denies headache, numbness, or weakness. PSYCHIATRIC: Denies anxiety or depression. [facility]LY [facility] Past Medical History Medical History (Updated 08/27/23 @ 10:28 by CAROLINA Ayers) Axillary pain us axilla (R): 5.10.23 negative Balance problem Chronic fatigue syndrome Fibromyalgia History of breast cancer in adulthood 2016/ ER+, HERS(-), BRCA (-), [place]+(r), [place](-)(L) Lumbar radiculopathy, right Major depressive disorder, single episode, unspecified Memory loss age appropriate with name recall MRI 2.17.20-Several small nonspecific white matter signal hyperintensities most likely minimal microangiopathy. Postmastectomy lymphedema LEFT Primary osteoarthritis of right hand Tension headache Surgical History Surgical History History of bilateral mastectomy (~11/24/15) History of hysterectomy History of tonsillectomy Hx of cholecystectomy Family History Family History Father Diabetes mellitus Mother Diabetes mellitus Other Hypertension Social History Social History Smoking status: Never smoker Alcohol intake: never Lack of Transportation: No Lack of Food: Never True Current Housing: I Have Housing Concerned About Future Housing: No Difficulty Paying Gas/Electric Bills: No Difficulty Paying for Meds: No Currently Unemployed: No Education: High School Diploma/GED Difficulty w/ Childcare or Family Care: No Comments At time of signature, agree with nursing past medical, surgical, social and family history. There is no relevant family history pertinent to the presenting complaint Exam Narrative: The patient is a well-developed, well-nourished in no acute distress. SKIN: Skin is warm and dry without erythema, swelling or exudate. There is good turgor. No tenting. HEAD: Atraumatic. Normocephalic. No temporal or scalp tenderness. EYES: Moist and bright. Sclera and conjunctivae normal. No discharge. PERRLA. Extraocular motions intact. Gross visual acuity intact. EARS: Pinna is normal shape and contour. Clear external auditory canals. TM pearly seay with good cone of light, no erythema or suppuration. Bilateral cerumen noted no gross hearing deficit. NOSE: pink, moist mucosa with good air movement. Clear rhinorrhea without nasal flaring. Septum midline. Mouth: moist mucous membranes. THROAT; mild erythema noted to posterior oropharynx with moderate postnasal drainage. Without exudate or ulceration.. Uvula midline. Normal movement
== END 2023-08-27 10:35 | disposition home or self-care (01) ==
PROVIDERS: Emergency Provider Nurse Practitioner Family; PCP Family Medicine
DX: J06.9 Acute upper respiratory infection, unspecified (principal); Z79.899 Other long term (current) drug therapy; Z85.3 Personal history of malignant neoplasm of breast
CPT/HCPCS: 87081; 87880; 99213; G0463

== ENCOUNTER 2023-10-04 10:34 | Emergency (ER) | payer BC, MEDICAID, SELFPAY ==
[2023-10-04 10:46] VITALS: BP 112/83; PULSE 100; RESP 18; TEMP 37.3; O2SAT 96
--- NOTE | 2023-10-04 11:27 | ED.GENADULT ---
HPI - General Adult General Chief complaint: Upper Respiratory Infection Stated complaint: headache/throat/cough Source: patient Mode of arrival: ambulatory Limitations: no limitations History of Present Illness HPI narrative: Patient presents for evaluation of a sore throat for the last 2 days. She also has some sinus congestion and occasional mild cough. No fever, chills, nausea, vomiting, diarrhea or SOB. She tried tylenol for her symptoms. No recent sick contacts. She does not smoke. Related Data Home Medications Medication Instructions Recorded Confirmed paroxetine HCl 20 mg tablet mg PO 08/27/23 Allergies Allergy/AdvReac Type Severity Reaction Status Date / Time Antihistamines - Alkylamine Allergy Intermediate jittery Verified 06/15/23 15:38 latex Allergy Intermediate RASH,ITCHIN Verified 06/15/23 15:38 G Review of Systems Review of Systems: CONSTITUTIONAL: Denies fever, chills, or sweats. EYES: Denies visual changes, redness, or discharge. ENT: Reports sore and sinus congestion. CARDIOVASCULAR: Denies chest pain, palpitations, or edema. RESPIRATORY: Reports occasional cough. Denies dyspnea. GASTROINTESTINAL: Denies abdominal pain, nausea, vomiting, or diarrhea. GENITOURINARY: Denies dysuria or hematuria. SKIN: Denies rash or itching. MUSCULOSKELETAL: Denies back pain, joint pain, or myalgia. NEUROLOGIC: Denies headache, numbness, dizziness, or weakness. PSYCHIATRIC: Denies anxiety or depression. [facility] Past Medical History Medical History Axillary pain us axilla (R): 5.10.23 negative Balance problem Chronic fatigue syndrome Fibromyalgia History of breast cancer in adulthood 2016/ ER+, HERS(-), BRCA (-), [place]+(r), [place](-)(L) Lumbar radiculopathy, right Major depressive disorder, single episode, unspecified Memory loss age appropriate with name recall MRI 2.17.20-Several small nonspecific white matter signal hyperintensities most likely minimal microangiopathy. Postmastectomy lymphedema LEFT Primary osteoarthritis of right hand Tension headache Surgical History Surgical History History of bilateral mastectomy (~11/24/15) History of hysterectomy History of tonsillectomy Hx of cholecystectomy Family History Family History Father Diabetes mellitus Mother Diabetes mellitus Other Hypertension Social History Social History Smoking status: Never smoker Alcohol intake: never Lack of Transportation: No Lack of Food: Never True Current Housing: I Have Housing Concerned About Future Housing: No Difficulty Paying Gas/Electric Bills: No Difficulty Paying for Meds: No Currently Unemployed: No Education: High School Diploma/GED Difficulty w/ Childcare or Family Care: No Exam Narrative: GENERAL: Well-appearing, well-nourished, and in no acute distress. HEAD: Normocephalic, atraumatic. EYES: PERRLA and EOMI. ENT: Nares clear, no rhinorrhea or epistaxis. Mucous membranes moist. Posterior pharyngeal erythema without exudate. Uvula is midline. Bilateral TMs pearly duke nonbulging NECK: Supple. No adenopathy or masses. No carotid bruits or JVD CHEST: Clear to auscultation. No respiratory distress. No wheezes rales or rhonchi HEART: Regular rate and rhythm. No murmur heard. Normal peripheral pulses. ABDOMEN: Soft, nontender, nondistended, normal active bowel sounds. EXTREMITIES: Normal range of motion. No edema. SKIN: Warm, dry, no rash. NEURO: No focal deficits. Alert and oriented x3. PSYCH: Normal mood and affect. Course Course Emergency Course: This is a 58-year-old female who presented for evaluation of sore throat. Rapid strep negative. Elected to proceed with antibiotic therapy in the event this is a
== END 2023-10-04 11:34 | disposition home or self-care (01) ==
PROVIDERS: Emergency Provider Nurse Practitioner; PCP Family Medicine
DX: J02.9 Acute pharyngitis, unspecified (principal); Z85.3 Personal history of malignant neoplasm of breast
CPT/HCPCS: 87081; 87880; 99213; G0463

== ENCOUNTER 2024-01-14 10:17 | Outpatient (CLI) | payer BC, MEDICAID, SELFPAY ==
[2024-01-14 11:05] LABS: Alanine Aminotransferase 21 U/L (6-35); Albumin Level 4.5 g/dL (3.5-5.1); Alkaline Phosphatase 55 U/L (38-126); Anion Gap 9 mmol/L (4-12); Aspartate Amino Transferase 22 U/L (14-36); Bilirubin,Total 0.7 mg/dL (0.2-1.3); Blood Urea Nitrogen 17 mg/dL (7-17); Calcium 9.9 mg/dL (8.4-10.2); Carbon Dioxide 23 mmol/L (22-30); Chloride 107 mmol/L (98-107); Cholesterol 126 mg/dL (0-200); Estimated Glomerular Filt Rate > 60; Glucose 137 mg/dL (65-110); HDL Direct 53 mg/dL; Sodium 139 mmol/L (137-145); Triglycerides 113 mg/dL (<150)
[2024-01-14 11:16] LABS: LDL Cholesterol Direct 63 mg/dL
[2024-01-14 11:19] LABS: Hemoglobin A1C 6.8 % (<5.7)
[2024-01-14 11:59] LABS: Creatinine Urine 172.4 mg/dL
[2024-01-14 12:04] LABS: MALB Creatinine Ratio 8.4 mg/g (0-30); Microalbumin Urine Random 14.4 mg/L (0-16.7)
== END 2024-01-14 10:18 | disposition home or self-care (01) ==
LOC: ANHLAB 10:20
PROVIDERS: PCP Family Medicine; Visit Provider Family Medicine
DX: E11.8 Type 2 diabetes mellitus with unspecified complications (principal)
CPT/HCPCS: 36415; 80053; 80061; 82043; 82607; 83036

== ENCOUNTER 2024-06-02 10:22 | Outpatient (CLI) | payer BC, MEDICAID, SELFPAY ==
[2024-06-02 11:18] LABS: Hemoglobin A1C 6.1 % (<5.7)
[2024-06-02 11:19] LABS: Creatinine Urine 118.4 mg/dL
[2024-06-02 11:21] LABS: Alanine Aminotransferase 15 U/L (6-35); Albumin Level 4.2 g/dL (3.5-5.1); Alkaline Phosphatase 56 U/L (38-126); Anion Gap 10 mmol/L (4-12); Aspartate Amino Transferase 22 U/L (14-36); Bilirubin,Total 0.8 mg/dL (0.2-1.3); Blood Urea Nitrogen 22 mg/dL (7-17); Calcium 9.5 mg/dL (8.4-10.2); Carbon Dioxide 24 mmol/L (22-30); Chloride 106 mmol/L (98-107); Cholesterol 128 mg/dL (0-200); Estimated Glomerular Filt Rate > 60; Glucose 121 mg/dL (65-110); HDL Direct 56 mg/dL; Sodium 140 mmol/L (137-145); Triglycerides 98 mg/dL (<150)
[2024-06-02 11:24] LABS: Microalbumin Urine Random 9.5 mg/L (0-16.7)
[2024-06-02 11:32] LABS: LDL Cholesterol Direct 50 mg/dL
== END 2024-06-02 10:23 | disposition home or self-care (01) ==
LOC: ANHLAB 10:24
PROVIDERS: PCP Family Medicine; Visit Provider Family Medicine
DX: E11.8 Type 2 diabetes mellitus with unspecified complications (principal)
CPT/HCPCS: 36415; 80053; 80061; 82043; 82607; 83036

== ENCOUNTER 2024-07-14 12:36 | Emergency (ER) | payer BC, SELFPAY ==
[2024-07-14 14:05] VITALS: BP 124/76; PULSE 90; RESP 16; TEMP 36.9; O2SAT 99
--- NOTE | 2024-07-14 14:28 | ED.URI ---
HPI - URI/Sore Throat General Chief Complaint: Upper Respiratory Infection Stated Complaint: Sore Throat Time Seen by Provider: 07/14/24 14:28 Source: patient Mode of arrival: ambulatory Limitations: no limitations History of Present Illness HPI Narrative: 59 yo F presents with c/o nasal congestion, sinus pressure, PND, sore throat and mild cough for approx. 1 wk. Not taking any OTC medications to treat symptoms. has similar symptoms approx. 2 wks ago. Afebrile. Today home COVID test that was negative. All systems reviewed and negative except as noted above. Related Data Allergies Allergy/AdvReac Type Severity Reaction Status Date / Time Antihistamines - Alkylamine Allergy Intermediate jittery Verified 07/14/24 14:34 latex Allergy Intermediate RASH,ITCHIN Verified 07/14/24 14:34 G Review of Systems Review of Systems: CONSTITUTIONAL: Denies fever, chills, or sweats. Reports fatigue. EYES: Denies visual changes, redness, or discharge. ENT: Reports rhinorrhea, congestion, sinus pressure, sore throat. Denies otalgia. CARDIOVASCULAR: Denies chest pain, palpitations, or edema. RESPIRATORY: Reports cough. Denies dyspnea. GASTROINTESTINAL: Denies abdominal pain, nausea, vomiting, or diarrhea. GENITOURINARY: Denies dysuria or hematuria. SKIN: Denies rash or itching. MUSCULOSKELETAL: Denies back pain, joint pain, or myalgia. NEUROLOGIC: Denies headache, numbness, or weakness. PSYCHIATRIC: Denies anxiety or depression. All other systems reviewed are negative, except as documented in HPI. [facility] Past Medical History Medical History Axillary pain us axilla (R): 5.10.23 negative Balance problem Chronic fatigue syndrome Fibromyalgia History of breast cancer in adulthood 2016/ ER+, HERS(-), BRCA (-), [place]+(r), [place](-)(L) Lumbar radiculopathy, right Major depressive disorder, single episode, unspecified Mass of right axilla US 5.10.23: no mass Memory loss age appropriate with name recall MRI 2.17.20-Several small nonspecific white matter signal hyperintensities most likely minimal microangiopathy. Postmastectomy lymphedema LEFT Primary osteoarthritis of right hand Tension headache Surgical History Surgical History History of bilateral mastectomy (~11/24/15) History of hysterectomy History of tonsillectomy Hx of cholecystectomy Family History Family History Father Diabetes mellitus Mother Diabetes mellitus Other Hypertension Social History Social History Smoking status: Never smoker Alcohol intake: never Substance use: never Substance use type: does not use Do You Feel Safe in your Home?: Yes Lack of Transportation: No Lack of Food: Never True Current Housing: I Have Housing Concerned About Future Housing: No Difficulty Paying Gas/Electric Bills: No Difficulty Paying for Meds: No Currently Unemployed: No Education: High School Diploma/GED Difficulty w/ Childcare or Family Care: No Comments At time of signature, agree with nursing past medical, surgical, social and family history. There is no relevant family history pertinent to the presenting complaint. Exam Narrative: GENERAL: This is a well-nourished, well-developed patient, in no apparent distress. HEAD: normocephalic, atraumatic. EYES: PERRL. Sclera clear/white. Vision is grossly intact. EARS: External ears normal, auditory canals clear and without drainage, TMs normal without perforation. Hearing grossly intact. NOSE: External nose normal moderate congestion, purulent nasal drainage, erythema and swelling to bilateral nares. Bilateral maxillary sinus tenderness on palpation. THROAT: Mucous membranes moist, postnasal drainage with mild erythema. No significant swelling or exudates. NE
[2024-07-16 14:28] LABS: EDSTREPNEGPOS1 Negative (Negative)
== END 2024-07-14 14:44 | disposition home or self-care (01) ==
PROVIDERS: Emergency Provider Nurse Practitioner Family; PCP Family Medicine
DX: J01.90 Acute sinusitis, unspecified (principal); M79.7 Fibromyalgia; M19.041 Primary osteoarthritis, right hand; Z85.3 Personal history of malignant neoplasm of breast; Z90.13 Acquired absence of bilateral breasts and nipples
CPT/HCPCS: 87081; 87880; 99213; G0463

== ENCOUNTER 2024-10-18 10:43 | Outpatient (CLI) | payer BC, SELFPAY ==
[2024-10-18 13:03] LABS: Alanine Aminotransferase 17 U/L (6-35); Albumin Level 4.3 g/dL (3.5-5.1); Alkaline Phosphatase 61 U/L (38-126); Anion Gap 4 mmol/L (4-12); Aspartate Amino Transferase 33 U/L (14-36); Blood Urea Nitrogen 14 mg/dL (7-17); Carbon Dioxide 27 mmol/L (22-30); Chloride 110 mmol/L (98-107); Cholesterol 124 mg/dL (0-200); Estimated Glomerular Filt Rate > 60; Glucose 94 mg/dL (65-110); HDL Direct 49 mg/dL; Potassium 3.6 mmol/L (3.4-5.0); Sodium 141 mmol/L (137-145); Triglycerides 118 mg/dL (<150); Uric Acid 2.9 mg/dL (2.5-7.5)
[2024-10-18 13:13] LABS: Creatinine Urine 294.1 mg/dL
[2024-10-18 13:15] LABS: LDL Cholesterol Direct 42 mg/dL
[2024-10-18 13:20] LABS: MALB Creatinine Ratio 11.8 mg/g (0-30); Microalbumin Urine Random 34.8 mg/L (0-16.7)
[2024-10-18 13:28] LABS: Hemoglobin A1C 5.4 % (<5.7)
== END 2024-10-18 10:44 | disposition home or self-care (01) ==
LOC: ANHGOSHLAB 10:44
PROVIDERS: PCP Family Medicine; Visit Provider Family Medicine
DX: E11.8 Type 2 diabetes mellitus with unspecified complications (principal); M25.579 Pain in unspecified ankle and joints of unspecified foot
CPT/HCPCS: 36415; 80053; 80061; 82043; 82607; 83036; 84550

== ENCOUNTER 2025-01-09 08:03 | Outpatient (CLI) | payer BC, SELFPAY ==
--- OUTSIDE RECORDS SUMMARY | 2024-12-05 07:58 | XMS_ITS | Clinical Summary ---
Author Organization [facility] Address [address] [place] [id number] Care Team Providers Care Refrigeration Engineer Name Role Phone Bertin Chacon MD Primary Care Provider [phone] Allergies Active Allergy Reactions Criticality Noted Date Comments Latex Unknown 07/10/2015 Medications PARoxetine (PAXIL) 20 MG Tablet Take 20 mg by mouth daily. Active traZODone (DESYREL) 50 MG TabletIndication s:Breast cancer, unspecified laterality Take 1 Tab by mouth nightly. 30 Tab 0 09/18/2015 Active Cholecalciferol (VITAMIN D) 2000 UNIT Tablet Take 2,000 Units by mouth. Active anastrozole (ARIMIDEX) 1 MG Tablet Take 1 tablet by mouth once daily 90 Tab 2 08/11/2020 Active metFORMIN (GLUCOPHAGE-XR) 500 MG TABLET SR 24 HR Take 500 mg by mouth daily. 09/23/2020 Active Active Problems Problem Noted Date Diagnosed Date Aromatase inhibitor-associated arthralgia 2015 Vitamin D insufficiency 02/19/2016 Neuropathy due to chemotherapeutic drug 10/16/20 15 Bilateral malignant neoplasm of overlapping sites of breast in female 07/08/2015 Resolved Problems Problem Noted Date Diagnosed Date Resolved Date Fatigue due to treatment 08/28/201502/2016 Elevated liver enzymes 08/28/201512/04 Transient insomnia 08/21/2015 6 Headache, drug induced 08/21/201512/04 Arthralgia of multiple sites 08/21/2015 12/04/2015 Chemotherapy induced neutropenia 07/10/2015 12/04/2015 Family History Medical History Relation Name Comments Lung Cancer Father Parkinsonism Mother Breast Cancer Other cousin/Aunt Relation Name Status Comments Father lung cancer Mother Other Social History Tobacco Use Types Packs/Day Years Used Date Smoking Tobacco: Never Smokeless Tobacco: Never Alcohol Use Standard Drinks/Week Comments Not Asked 0 (1 standard drink = 0.6 oz pur e alcohol) PHQ-2 Answer Date Recorded Total Score - Questions 1-9 0 03/17 Comments No Sex and Gender Information Value Date Recorded Sex Assigned at Not on file Legal Sex Female 11:42 PM CDT Gender Identity Not on file Sexual Orientation Not on file Last Filed Vital Signs Vital Sign Reading Time Taken Comments Blood Pressure 134/80 11/06/2020 2:27 PM [employer] Pulse 82 11/06/2020 2:27 PM [employer] Temperature 36.6 C (97.8 F) 11/06/2020 2:27 PM [employer] Respiratory Rate 18 11/06/2020 2:27 PM [employer] Oxygen Saturation 96% 11/06/2020 2:27 PM [employer] Inhaled Oxygen Concentration - - Weight 82 kg (180 lb 12.8 oz) 11/06/2020 2:27 PM [employer] Height 160 cm (5' 3 ) 05/26/2017 10:19 AM CDT Body Mass Index 32.03 05/26/2017 10:19 AM CDT Plan of Treatment Health Maintenance Due Date Last Done Comments Hepatitis C Virus (HCV) Screening 1966 Mammogram Unilateral 1966 TdaP Immunization 1966 SARS-COV-2 Immunization (#1) 1971 Pneumococcal Immunization Combined (1 of 2 - PCV) 1972 Hepatitis B Immunization (1 of 3 - 19+ 3-dose series) 1985 Pneumococcal Immunization (5 0+ years) (1 of 2 - PCV) 1985 Zoster Immunization (1 of 2) 1985 Colonoscopy 2011 Colorectal Cancer Screening 2011 Cologuard 2016 Immunochemical Fecal Occult Blood 2016 Influenza Immunization (#1) 2024 09/2 05/2017, 07/13/2016 Respiratory Syncytial Virus (RSV) Immunization (Adult) (1 - 1-dose 75+ series) 2041 Meningococcal Immunization (ACWY) Aged Out No longer eligible b ased on patient's age to complete this topic Rotavirus Immunization Aged Out No lo nger eligible based on patient's age to complete this topic Insurance MEDICAID [place] Care Teams Refrigeration Engineer Relationship Specialty Start Date End Date Bertin Chacon MD [address] [place] [address] PCP - General Family Medicine 07/10/15
--- OUTSIDE RECORDS SUMMARY | 2024-12-05 07:58 | XMS_ITS | Clinical Summary ---
Author Organization [facility] Address [address] [place] [address] Care Team Providers Care Application Support Analyst Name Role Phone Bertin Chacon MD Primary Care Provider [phone] Allergies Active Allergy Reactions Criticality Noted Date Comments Latex Unknown 07/10/2015 Medications anastrozole (ARIMIDEX) 1 mg tablet Take 1 Tablet by mouth daily. 12/19/2017 Active cholecalciferol, Vitamin D3, 2,000 unit Tablet Take 5,000 Units by mouth daily . Active PARoxetine HCl (PAXIL) 20 mg tablet Take 20 mg by mouth daily. Active traZODone (DESYREL) 50 mg tablet Take 50 mg by mouth daily at bedtime. 09/18/2015 Active TURMERIC ORAL Take 500 mg by mouth daily. Active anastrozole (ARIMIDEX) 1 mg tablet TAKE 1 TABLET BY MOUTH ONCE DAILY 03/21/2019 Active Active Problems Problem Noted Date Diagnosed Date Tooth pain 05/31/2019 Muscle spasm 05/28/2019 Absence of both breasts 01/24/2019 Mastodynia of right breast 01/24/2019 Malignant neoplasm of overla pping sites of right breast in female, estrogen receptor positive 01/20/2018 Malignant neoplasm of upper- inner quadrant of left breast in female, estrogen receptor positive 01/20/2018 Postmastectomy lymphedema syndrome 01/20/2018 Use of aromatase inhibitors 01/20/2018 Personal history of antineoplastic chemotherapy 01/20/2018 Vitamin D deficiency 01/19/2018 Family History Medical History Relation Name Comments Cancer Father Relation Name Status Comments Father (Age 79) Lung Social History Tobacco Use Types Packs/Day Years Used Date Smoking Tobacco: Never Smokeless Tobacco: Never Alcohol Use Standard Drinks/Week Comments No 0 (1 standard drink = 0.6 oz pur e alcohol) Comments No Sex and Gender Information Value Date Recorded Sex Assigned at Not on file Legal Sex Female 5:12 PM CDT Gender Identity Not on file Sexual Orientation Not on file Last Filed Vital Signs Vital Sign Reading Time Taken Comments Blood Pressure 130/87 05/31/2019 3:31 PM CDT Pulse 90 05/31/2019 3:31 PM CDT Temperature 37.3 C (99.2 F) 05/31/2019 3:31 PM CDT Respiratory Rate 16 01/19/2018 2:55 PM CDT Oxygen Saturation 96% 05/31/2019 3:31 PM CDT Inhaled Oxygen Concentration - - Weight 79.7 kg (175 lb 9.6 oz) 05/31/2019 3:31 P M CDT Height 160 cm (5' 3 ) 05/31/2019 3:31 PM CDT Body Mass Index 31.11 05/31/2019 3:31 PM CDT Plan of Treatment Health Maintenance Due Date Last Done Comments DTAP/TDAP/TD VACCINES (1 - Tdap) 1985 HEPATITIS B VACCINES (1 of 3 - 19+ 3-dose series) 1985 CERVICAL CANCER SCREENING 1996 COLORECTAL SCREENING 2011 Colorectal Cancer Screening 2011 FIT-DNA Q 3 years 2011 FIT/FOBT Q 1 year 2011 Flex Sig/CT Colonography Q 5 years 2011 ZOSTER VACCINE (1 of 2) 2016 BREAST CANCER SCREENING 05/31/2020 05/31/20 19, 02/28/2019, 01/24/2019, Additional history exists INFLUENZA VACCINE (#1) 2024 PNEUMOCOCCAL VACCINE 0-64 YEARS Aged Out No longer eligible based on patient's age to complete this topic Procedures Procedure Name Priority Date/Time Associated Diagnosis Comments MAMMOGRAM REPORT Routine 04/03/2016 from Last 3 Months or Most Recently Relevant to Health Maintenance Results * MAMMOGRAM REPORT (04/03/2016) Anatomical Region Laterality Modality Other us Abstract Provider MAMMO ORDERABLES Final Result from Last 3 Months or Most Recently Relevant to Health Maintenance Care Teams Application Support Analyst Relationship Specialty Start Date End Date Bertin Chacon MD [address] [place] [address] PCP - General Family Practice 01/19/18
--- OUTSIDE RECORDS SUMMARY | 2024-12-05 07:58 | XMS_ITS ---
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 Past Treatment and Therapy Plans ONCOLOGY SUPPORTIVE CARE Plan Name Start Date Discontinue Date Treatment Medications Discontinue Reason Plan Provider Cycles SUPPORT - PROLIA (DENOSUMAB) - CCS 02/18/2016 11/17/2020 No medications scheduled. Plan Clean Up Yolie Montes MD 1 of 4 cycles started ONCOLOGY TREATMENT Plan Name Start Date Discontinue Date Treatment Medications Discontinue Reason Plan Provider Cycles BREAST - TAXOL WEEKLY - POST AC - CCSCI 07/30/20 15 11/17/2020 PACLitaxel (TAXOL) chemo infusion Plan Clean Up Yolie Montes MD 3 of 3 cycles started BREAST - CA STANDARD - [facility]SCI 5 07/29/2015 cyclophosphamide with mesna (CYTOXAN) chemo infusion using solrDOXOrubicin (ADRIAMYCIN) Therapy Complete Yolie Montes MD 1 of 4 cycles started Lifetime Dose Tracking * Chemical Lifetime Dose Automatic Entry Manual Entr y Doxorubicin 60 mg/m2 (114.6 mg) 60 mg/m2 (114.6 mg) 0 mg/m2 (0 mg) Resolved Problems Problem Noted Date Diagnosed Date Resolved Date Fatigue due to treatment 08/28/201502/2016 Elevated liver enzymes 08/28/201512/04 Transient insomnia 08/21/2015 6 Headache, drug induced 08/21/201512/04 Arthralgia of multiple sites 08/21/2015 12/04/2015 Chemotherapy induced neutropenia 07/10/2015 12/04/2015
--- OUTSIDE RECORDS SUMMARY | 2024-12-05 07:58 | XMS_ITS | Encounter Summary ---
Author Organization [facility] Address [address] [place] [address] Phone Care Team Providers Care Tape Fastener Machine Operator Name Role Phone Bertin Chacon MD Primary Care Provider [phone] Encounter Details Date Type Department Care Team (Late st Contact Info) Description 09/24/2020 Telephone [facility] [address] [place] [address] Alirio Meza MD [address] [place] [address] Social History Tobacco Use Types Packs/Day Years [...] on file Sexual Orientation Not on file documented as of this encounter Miscellaneous Notes * Telephone Encounter - Lili Pendleton - 09/24/2020 1:53 PM CST PATIENT CALLED AND CANCELLED HER APPT SHE WAS EXPOSED TO COVID. PATIENT SAID SHE WILL BE GETTINGTESTED TOMORROW AND WILL CALL US ONCE SHE GETS THE RESULTS. PATIENT IS NOT EXPERIENCING ANY SYMPTOMS CURRENTLY. E CQ DEVELOPER documented in this encounter Plan of Treatment Not on file documented as of this encounter Visit Diagnoses Not on filedocumented in this encounter Additional Health Concerns Assessment Noted Time PHQ-9 Depression Total Score: 0 03/27/20 20 11:43 AM CDT documented as of this encounter Care Teams Tape Fastener Machine Operator Relationship Specialty Start Date End Date Bertin Chacon MD [address] [place] [address] PCP - General Family Medicine 07/10/15 documented as of this encounter
--- OUTSIDE RECORDS SUMMARY | 2024-12-05 07:58 | XMS_ITS | Clinical Summary ---
Author Organization [facility] Address [facility] [place] [address] Care Team Providers Care Food Processor Name Role Phone Bertin Chacon MD Primary Care Provider [phone] Social History Tobacco Use Types Packs/Day Years Used Date Smoking Tobacco: Never Assessed Comments Unknown Sex and Gender Information Value Date Recorded Sex Assigned at Not on file Legal Sex Female 8:00 PM CDT Gender Identity Not on file Sexual Orientation Not on file Plan of Treatment Health Maintenance Due Date Last Done Comments Cervical Cancer Screening Pa p Smear (Age 30 to 64) Every 3 Years 1966 Colorectal Cancer Screening Colonoscopy (10 Years) 1966 Annual Physical 1969 Hepatitis C 1984 DTaP, Tdap and Td Vaccines ( 1 - Tdap) 1985 Hepatitis B Vaccines (1 of 3 - 19+ 3-dose series) 1985 Cervical Cancer Screening Pa p with HPV Testing (Age 30 to 64) Every 5 Years 1996 Cervical Cancer Screening with HPV 1996 Mammogram Screening 2006 Zoster Vaccines (1 of 2) 2016 COVID-19 Vaccine (2023-2 5 season) 2024 Influenza Adult (#1) 2024 Meningococcal B Vaccine Aged Out No l onger eligible based on patient's age to complete this topic Meningococcal Vaccine Aged Out No jorge rosario eligible based on patient's age to complete this topic Pneumococcal Vaccine: Pediat rics (0 to 5 Years) and At-Risk Patients (6 to 64 Years) Aged Out No longer eligible b ased on patient's age to complete this topic RSV Immunizations Under 20 Months Aged Out No longer eligible based on patient's age to complete this topic Insurance MEDICAID Care Teams Food Processor Relationship Specialty Start Date End Date Bertin Chacon MD [address] [place] [address] PCP - General FAMILY PRACTICE 03/03/19
--- OUTSIDE RECORDS SUMMARY | 2024-12-05 07:59 | XMS_ITS | Referral Summary ---
Author Organization [facility] Address [address] [place] [address] Care Team Providers Care Automotive Internet Sales Consultant Name Role Phone Matthew Chacon MD Primary Care Provider [phone] Source Comments [facility],non-owned Affiliates and Associated Physician Practices is amultiple site organization consisting of ambulatory clinics and hospital sitesin [place], [place], [place] and [place]. This disclosure is being madepursuant to the Care Everywhere program and may not contain all information available regarding this patient. Last updated 18.[facility] [employer] Social History Tobacco Use Types Packs/Day Years Used Date Smoking Tobacco: Never Assessed Sex and Gender Information Value Date Recorded Sex Assigned at Not on file Gender Identity Not on file Sexual Orientation Not on file Plan of Treatment Not on file Care Teams Automotive Internet Sales Consultant Relationship Specialty Start Date End Date Matthew Chacon MD [address] [place] [address] PCP - General Family Medicine 04/28/15
--- OUTSIDE RECORDS SUMMARY | 2024-12-05 07:59 | XMS_ITS | Clinical Summary ---
Author Organization [facility] [employer] Address [address] [place] [address] Care Team Providers Care In Flight Refueling Operator Name Role Phone Matthew Chacon MD Primary Care Provider [phone] Source Comments [facility] [employer],non-owned Affiliates and Associated Physician Practices is amultiple site organization consisting of ambulatory clinics and hospital sitesin [place], [place], [place] and [place]. This disclosure is being madepursuant to the Care Everywhere program and may not contain all information available regarding this patient. Last updated 18.[facility] [employer] Social History Tobacco Use Types Packs/Day Years Used Date Smoking Tobacco: Never Assessed Sex and Gender Information Value Date Recorded Sex Assigned at Not on file Gender Identity Not on file Sexual Orientation Not on file Plan of Treatment Health Maintenance Due Date Last Done Comments COLOGUARD (AGES 45-75) - COL ON CA SCREENING 1966 COLON MONITORING 1966 COLONOSCOPY - COLON CA SCREENING 1966 CT COLONOGRAPHY - COLON CA SCREENING 1966 Colorectal Cancer Screening 1966 FIT - COLON CA SCREENING 1966 FLEX SIG - COLON CA SCREENING 1966 LIPID TESTING 1966 MAMMOGRAM 1966 PAP SMEAR 1966 HIV SCREENING 1981 HEPATITIS C SCREENING 04/08/1984 DTAP/TDAP/TD VACCINES (1 - Tdap) 1985 HEPATITIS B VACCINE (1 of 3 - 19+ 3-dose series) 1985 PNEUMOCOCCAL VACCINE 50+ (1 of 1 - PCV) 2016 ZOSTER VACCINE (1 of 2) 2016 COVID-19 VACCINE (1 - 2023-2 5 season) 2024 INFLUENZA VACCINE (#1) 2024 DEPRESSION SCREENING 10/17/2024 HIB VACCINE Aged Out No longer eligi ble based on patient's age to complete this topic HPV VACCINE Aged Out No longer eligi ble based on patient's age to complete this topic MENINGOCOCCAL (Group B) VACCINE Aged Out No longer eligible based on patient's age to complete this topic MENINGOCOCCAL VACCINE Aged Out No jorge rosario eligible based on patient's age to complete this topic PNEUMOCOCCAL VACCINE Aged Out No long er eligible based on patient's age to complete this topic Care Teams In Flight Refueling Operator Relationship Specialty Start Date End Date Matthew Chacon MD [address] [place] [id number] PCP - General Family Medicine 04/28/15
--- OUTSIDE RECORDS SUMMARY | 2024-12-05 07:59 | XMS_ITS | Patient Health Summary ---
Author Organization [facility] Address [address] [facility] [place] [address] Care Team Providers Care Operater Name Role Phone Matthew Chacon MD Primary Care Provider [phone] Note from [facility],non-owned Affiliates and Associated Physician Practices is amultiple site organization consisting of ambulatory clinics and hospital sitesin [place], [place], [place] and [place]. This disclosure is being madepursuant to the Care Everywhere program and may not contain all information available regarding this patient. Last updated 18.[facility] Social History Tobacco Use Types Packs/Day Years Used Date Smoking Tobacco: Never Assessed Sex and Gender Information Value Date Recorded Sex Assigned at Not on file Gender Identity Not on file Sexual Orientation Not on file Procedures * MRI BREAST BILAT [facility] CONTRAST(Performed 02/21/2019) Performed for Malignant neoplasm of overlapping sites of right breast in female, estrogen receptor positive (HCC) * CREATININE BLOOD - POCT (IP) [facility](Performed 02/21/2019) Performed for Malignant neoplasm of overlapping sites of right breast in female, estrogen receptor positive (HCC) * DIFFERENTIAL MANUAL(Performed 04/28/2015) Performed for Malignant neoplasm of both breasts (HCC) * VITAMIN D 25-HYDROXY(Performed 04/28/2015) Performed for Vitamin D deficiency * CANCER ANTIGEN (CA) 15-3(Performed 04/28/2015) Performed for Malignant neoplasm of both breasts (HCC) * CEA BLOOD(Performed 04/28/2015) Performed for Malignant neoplasm of both breasts (HCC) * COMPREHENSIVE METABOLIC PANEL(Performed 04/28/2015) Performed for Malignant neoplasm of both breasts (HCC) * CBC W AUTO DIFFERENTIAL(Performed 04/28/2015) Performed for Malignant neoplasm of both breasts (HCC) * MRI BREAST BILAT [facility] CONTRAST(Performed 04/14/2015) * CREATININE BLOOD - POCT (IP) [facility](Performed 04/14/2015) Results * MRI BREAST BILAT [facility] CONTRAST (02/21/2019 8:12 AM CDT) Only the most recent of2 resultswithin the time period is included. Anatomical Region Laterality Modality Breast Bilateral Magnetic Resonan ce 02/21/2019 10:5 2 AM CDT Impressions 02/21/2019 11:00 AM CDT IMPRESSION: BI-RADS category 2, benign findings. Post surgical changes from bilateral mastectomy without abnormal enhancement. RECOMMENDATION: Follow-up with the patient's breast surgeon. This report was electronically signed by HALLIE ESPARZA M.D. on 02/21/2019 11:00 AM . Narrative 02/21/2019 11:00 AM CDT MRI of the breasts with and without contrast COMPARISON: No relevant examinations related to the new clinical situation. HISTORY: 53-year-old female who underwent bilateral mastectomy for right breast invasive lobular carcinoma in 2016. She has focal pain in the outer right breast which had a questionable ultrasound finding on evaluation by her breast surgeon. TECHNIQUE: Multiplanar multisequence MR imaging of both breasts before and following the administration of intravenous gadolinium contrast. Dynamic phase imaging was performed in the axial plane. Exam processed by and interpreted on a Well[employer] observer gravity prospecting including 3-D volume rendering, subtraction image processing and contrast kinetic analysis. 8 cc of Gadovist intravenous. GFR: Greater than 60 FINDINGS: Degree of postcontrast parenchymal enhancement: Minimal due to lack of breast parenchyma tissue. Amount of fibroglandular tissue: Absent Postsurgical changes from bilateral mastectomy are noted. Slightly more prominent fatty tissue is seen in the lateral breasts bilaterally without suspicious mass or abnormal enhancement. No enlarged lymph nodes are seen within the left axilla. Very few if any lymph nodes are appreciated within the right axilla. Surgical clips are noted along the right pectoralis muscle, but the pectoralis muscles appear to enhance symmetrically. Small bilateral pleural effusions are incidentally noted. Maria Elena Austin DO MR ORDERABLES * (ABNORMAL) CREATININE BLOOD - POCT (IP) [facility] (02/21/2019 7:43 AM CDT) Only the most recent of2 resultswithin the time period is included. Creatinine POCT 1.04 0.3 - 1.3 mg/dL [facility] eGFR POCT 59(A) 60 ml/min [facility] Blood BLOOD SPECIMEN / Unknown 02/21/2019 7:43 AM CDT Maria Elena Robles [facility] - POINT OF CARE ORDERABLES Performing Organization Address [facility]/ZIP Co de Phone Number [facility] [address] [phone] * CA 15-3 (04/28/2015 4:35 PM CDT) CA 15-3 12 0 - 31 U/mL 05/01/2015 12:21 AM CDT [employer] ([facility]) Comment: INTERPRETIVE INFORMATION: Cancer Antigen-Breast (CA15-3) The Eunice CA 15-3 electrochemiluminescent immunoassay was used. Results obtained with different methods or kits cannot be used interchangeably. The CA 15-3 test is used to aid in the management of Stage II and III breast cancer patients. Serial testing for patient CA 15-3 values should be used in conjunction with other clinical methods for monitoring breast cancer. Patients with confirmed breast carcinoma frequently have CA 15-3 values in the same range as healthy individuals. Elevations may be observed in patients with nonmalignant disease. Therefore, a CA 15-3 value, regardless of level, should not be interpreted as absolute evidence of the presence or absence of malignant disease. Blood specimen (specimen) BLOOD SPECIMEN / Unknown Lab Venipuncture / Unknown 04/28/2015 4:35 PM CDT 04/28/2015 5:19 PM CDT Yolie Montes MD LAB - CHEMISTRY SUAD JARA [employer] ([facility]) [address] [place] [address], [facility] * VITAMIN D 25-HYDROXY (04/28/2015 4:35 PM CDT) [facility] Vitamin D, 25 Hydroxy 34.0 30 - 60 ng/mL 04/28/2015 6:02 PM CDT [facility] Blood BLOOD SPECIMEN / Unknown Lab Venipuncture / Unknown 04/28/2015 4:35 PM CDT 04/28/2015 5:12 PM CDT Narrative [facility] - 04/28/2015 6:02 PM CDT Vitamin D interpretative comment: This immunoassay methodology detects both 20-OH vitamin D3 and 25-OH vitamin D2, but 25-OH vitamin D2 is detectable at a mean recovery level of 82% depending on the type of vitamin D2 prescribed. When monitoring of patients on vitamin D2 therapy, alternative vitamin D test with different methodology is suggested to confirm the results in patients with sub-therapeutic level or if the vitamin D results are inconsistent with clinical evidence. Yolie Montes MD LAB - CHEMISTRY SUAD JARA [facility] Organization Address City/State/[facility] Co de Phone Number [facility] [address] * (ABNORMAL) DIFFERENTIAL MANUAL (04/28/2015 4:35 PM CDT) [facility] WBC Auto 9.3 4.0 - 10.0 x10^9/L 04/28/2015 5:58 PM CDT [facility] Neutrophils % Manual 45 40 - 75 % 04/28/2015 5:58 PM CDT [facility] Lymphocytes % Manual 46 19 - 53 % 04/28/2015 5:58 PM CDT [facility] Monocytes % Manual 6 5 - 13 % 04/28/2015 5:58 PM CDT [facility] Eosinophils % Manual 2 1 - 7 % 04/28/2015 5:58 PM CDT [facility] Basophils % Manual 1 0 - 1 % 04/28/2015 5:58 PM CDT [facility] Neutrophils Absolute Manual 4.2 1.6 - 6.1 x10^3/uL 04/28/2015 5:58 PM CDT [facility] Lymphocytes Absolute Manual 4.3(H) 1.2 - 3.7 x10^3/uL 04/28/2015 5:58 PM CDT [facility] Monocytes Absolute Manual 0.6 0.2 - 0.9 x10^3/uL 04/28/2015 5:58 PM CDT [facility] Eosinophils Absolute Manual 0.2 0.0 - 0.5 x10^3/uL 04/28/2015 5:58 PM CDT [facility] Basophil Absolute Manual 0.1 0.0 - 0.1 x10^3/uL 04/28/2015 5:58 PM CDT [facility] Cells Counted 100 # cells 04/28/2015 5:58 PM CDT [facility] Platelet Estimation Normal Normal, Adequate platelets 04/28/2015 5:58 PM CDT [facility] RBC Morphology Normal 04/28/2015 5:58 PM CDT [facility] WBC Morph Normal 04/28/2015 5:58 PM CDT [facility] Blood BLOOD SPECIMEN / Unknown Lab Venipuncture / Unknown 04/28/2015 4:35 PM CDT 04/28/2015 5:12 PM CDT Yolie Montes MD LAB - HEMATOLOGY ORD ERABLES Performing Organization Address City/State/[facility] Co de Phone Number [facility] [address] * CBC W AUTO DIFFERENTIAL (04/28/2015 4:35 PM CDT) [facility] Signature WBC 9.3 4.0 - 10.0 x10^9/L 04/28/2015 5:15 PM CDT [facility] RBC 5.03 3.93 - 5.22 x10^12/L 04/28/2015 5:15 PM CDT [facility] Hemoglobin 14.3 11.2 - 15.7 gm/dL 04/28/2015 5:15 PM CDT [facility] Hematocrit 43.4 34.1 - 44.9 % 04/28/2015 5:15 PM CDT [facility] MCV 86.3 78.0 - 100.0 fl 04/28/2015 5:15 PM CDT [facility] MCH 28.4 25.6 - 34.0 pg 04/28/2015 5:15 PM CDT [facility] MCHC 32.9 32.3 - 36.5 gm/dL 04/28/2015 5:15 PM CDT [facility] RDW 12.7 11.6 - 14.4 % 04/28/2015 5:15 PM CDT [facility] MPV 9.9 9.4 - 12.4 fl 04/28/2015 5:15 PM CDT [facility] Platelet Count 262 163 - 369 x10^9/L 04/28/2015 5:15 PM CDT [facility] Immature Granulocytes 0.2 0 - 0.5 % 04/28/2015 5:15 PM CDT [facility] Immature Granulocytes Absolute 0.02 0 - 0.03 x10^9/L 04/28/2015 5:15 PM CDT [facility] nRBC Auto 0 <=0 /100 WBC 04/28/2015 5:15 PM CDT [facility] Hematology Reflex Status Manual Diff to follow 04/28/2015 5:15 PM T [facility] Blood BLOOD SPECIMEN / Unknown Lab Venipuncture / Unknown 04/28/2015 4:35 PM CDT 04/28/2015 5:12 PM CDT Yolie Montes MD LAB - HEMATOLOGY ORD ERABLES Performing Organization Address City/State/[facility] Co de Phone Number [facility] [address] * (ABNORMAL) COMPREHENSIVE METABOLIC PANEL (04/28/2015 4:35 PM CDT) [facility] Signature Glucose 85 70 - 125 mg/dL 04/28/2015 5:42 PM CDT [facility] Sodium 142 136 - 145 mmol/L 04/28/2015 5:42 PM CDT [facility] Potassium 3.3(L) 3.4 - 4.5 mmol/L 04/28/2015 5:42 PM CDT [facility] Chloride 110(H) 98 - 107 mmol/L 04/28/2015 5:42 PM CDT [facility] CO2 23 22 - 29 mmol/L 04/28/2015 5:42 PM CDT [facility] Calcium 10.2 8.4 - 10.2 mg/dL 04/28/2015 5:42 PM CDT [facility] Anion Gap 12 10 - 20 mmol/L 04/28/2015 5:42 PM CDT [facility] BUN 16.7 9.8 - 20.1 mg/dL 04/28/2015 5:42 PM CDT [facility] Creatinine 0.76 0.57 - 1.11 mg/dL 04/28/2015 5:42 PM CDT [facility] eGFR by MDRD >60 >60 mL/min/1.7 3m2 04/28/2015 5:42 PM CDT [facility] eGFR by MDRD >60 >60 mL/min/1.7 3m2 04/28/2015 5:42 PM CDT [facility] Alkaline Phosphatase 62 40 - 150 U/L 04/28/2015 5:42 PM CDT [facility] ALT 34 5 - 55 U/L 04/28/2015 5:42 PM CDT [facility] AST 23 5 - 34 U/L 04/28/2015 5:42 PM CDT [facility] Protein Total 7.6 6.4 - 8.3 gm/dL 04/28/2015 5:42 PM CDT [facility] Albumin 4.2 3.5 - 5.0 gm/dL 04/28/2015 5:42 PM CDT [facility] Globulin Total 3.4 2.6 - 4.0 gm/dL 04/28/2015 5:42 PM CDT [facility] Albumin/Globulin Ratio 1.2 0.9 - 1.6 04/28/2015 5:42 PM CDT [facility] Bilirubin Total 0.6 0.2 - 1.2 mg/dL 04/28/2015 5:42 PM CDT [facility] Blood BLOOD SPECIMEN / Unknown Lab Venipuncture / Unknown 04/28/2015 4:35 PM CDT 04/28/2015 5:12 PM CDT Yolie Montes MD LAB - CHEMISTRY SUAD JARA [facility] Organization Address [facility] Co de Phone Number [facility] [address] * CEA BLOOD (04/28/2015 4:35 PM CDT) CEA 1.0 0.0 - 5.0 ng/mL 04/29/2015 9:44 AM CDT [facility] Blood BLOOD SPECIMEN / Unknown Lab Venipuncture / Unknown 04/28/2015 4:35 PM CDT 04/28/2015 5:12 PM CDT Narrative [facility] - 04/29/2015 9:44 AM CDT CEA BLOOD COMMENT The methodology used for the determination of CEA is [employer] Special Agent Chemiluminescent Microparticle Immunoassay (VELASQUEZ). Values obtained with other methods can not be used interchangeably. Yolie Montes MD LAB - CHEMISTRY SUAD JARA [facility] Organization Address City/State/ZIP Co de Phone Number [facility] [address] Care Teams Operater Relationship Specialty Start Date End Date Matthew Chacon MD [address] [place] [id number] PCP - General Family Medicine 04/28/15
--- OUTSIDE RECORDS SUMMARY | 2025-01-09 08:10 | XMS_ITS ---
Author Organization [facility] Address [address] [place] [id number] Care Team Providers Care Senior Software Development Manager Name Role Phone Bertin Chacon MD Primary Care Provider [phone] Active Problems Problem Noted Date Diagnosed Date [...]
--- OUTSIDE RECORDS SUMMARY | 2025-01-09 08:10 | XMS_ITS | Clinical Summary ---
Author Organization [facility] [employer] Address [address] [facility] [place] [address] Care Team Providers Care Technical Aide Name Role Phone Matthew Chacon MD Primary Care Provider [phone] Source Comments [facility] [employer],non-owned Affiliates and Associated Physician Practices is amultiple site organization consisting of ambulatory clinics and hospital sitesin [place], [place], [place]. This disclosure is being madepursuant to the Care Everywhere program and may not contain all information available regarding this patient. Last updated 18.[facility] [employer] Social History Tobacco Use Types Packs/Day Years [...] to complete this topic MENINGOCOCCAL (Group B) VACC INE SHARED DECISION-MAKING Aged Out No longer eligibl e based on patient's age to complete this topic MENINGOCOCCAL GROUPS A/C/Y/W VACCINE Aged Out No longer eligible b ased on patient's age to complete this topic PNEUMOCOCCAL VACCINE Aged Out No long er eligible based on patient's age to complete this topic Care Teams Technical Aide Relationship Specialty Start Date End Date Matthew Chacon MD [address] [place] [id number] PCP - General Family Medicine 04/28/15
--- OUTSIDE RECORDS SUMMARY | 2025-01-09 08:10 | XMS_ITS | Clinical Summary ---
Author Organization [facility] Address [address] [place] [address] Care Team Providers Care Assistant Offset Press Operator Name Role Phone Bertin Chacon MD Primary Care Provider [phone] Allergies Active Allergy Reactions Criticality Noted Date [...] of 3 - 19+ 3-dose series) 1985 PAP SMEAR 1987 CERVICAL CANCER SCREENING 1996 HPV/Cotest 1996 PAP SMEAR 1996 COLORECTAL SCREENING 2011 Colorectal Cancer Screening 2011 FIT-DNA Q 3 years 2011 FIT/FOBT Q 1 year 2011 Flex Sig/CT Colonography Q 5 years 2011 ZOSTER VACCINE (1 of 2) 2016 BREAST CANCER SCREENING 04/03/2017 04/03/20 16, 04/03/2015, 04/01/2015 INFLUENZA VACCINE (#1) 2024 PNEUMOCOCCAL VACCINE 0-49 YEARS Aged Out No longer eligible b ased on patient's age to complete this topic Procedures Procedure Name Priority Date/Time Associated Diagnosis Comments MAMMOGRAM REPORT Routine 04/03/2016 from Last 3 Months or Most Recently Relevant to Health Maintenance Results * MAMMOGRAM REPORT (04/03/2016) us Abstract Provider MAMMO ORDERABLES Final Result [facility] from Last 3 Months or Most Recently Relevant to Health Maintenance Care Teams Assistant Offset Press Operator Relationship Specialty Start Date End Date Bertin Chacon MD [address] [place] [phone] PCP - General Family Practice 01/19/18
--- OUTSIDE RECORDS SUMMARY | 2025-01-09 08:10 | XMS_ITS | Clinical Summary ---
Author Organization [facility] Address [address] [place] [id number] Care Team Providers Care Mandrel Puller Name Role Phone Bertin Chacon MD Primary Care Provider [phone] Allergies Active Allergy Reactions Criticality Noted Date [...] Comments Blood Pressure 134/80 11/06/2020 2:27 PM SETUP OPERATOR Pulse 82 11/06/2020 2:27 PM SETUP OPERATOR Temperature 36.6 C (97.8 F) 11/06/2020 2:27 PM SETUP OPERATOR Respiratory Rate 18 11/06/2020 2:27 PM SETUP OPERATOR Oxygen Saturation 96% 11/06/2020 2:27 PM SETUP OPERATOR Inhaled Oxygen Concentration - - Weight 82 kg (180 lb 12.8 oz) 11/06/2020 2:27 PM SETUP OPERATOR Height 160 cm (5' 3 ) 05/26/2017 10:19 AM CDT Body Mass Index 32.03 05/26/2017 10:19 AM CDT Plan of Treatment Health Maintenance Due Date Last Done Comments Hepatitis C Virus (HCV) Screening 1966 TdaP Immunization 1966 SARS-COV-2 Immunization (#1) 1971 Hepatitis B Immunization (1 of 3 - 19+ 3-dose series) 1985 Pneumococcal Immunization (5 0+ years) (1 of 2 - PCV) 1985 Zoster Immunization (1 of 2) 1985 Colonoscopy 2011 Colorectal Cancer Screening 2011 Cologuard 2016 Immunochemical Fecal Occult Blood 2016 Influenza Immunization (#1) 06/17/20242 05/2017, 07/13/2016 Respiratory Syncytial Virus (RSV) Immunization (Adult) (1 - 1-dose 75+ series) 2041 Meningococcal Immunization (ACWY) Aged Out No longer eligible b ased on patient's age to complete this topic Rotavirus Immunization Aged Out No lo nger eligible based on patient's age to complete this topic Insurance MEDICAID [place] Care Teams Mandrel Puller Relationship Specialty Start Date End Date Bertin Chacon MD [address] [place] [address] PCP - General Family Medicine 07/10/15
--- OUTSIDE RECORDS SUMMARY | 2025-01-09 08:10 | XMS_ITS | Encounter Summary ---
Author Organization [facility] Address [address] [place] [address] Phone Care Team Providers Care Vineyardist Name Role Phone Bertin Chacon MD Primary Care Provider [phone] Encounter Details Date Type Department Care Team (Late st Contact Info) Description 09/24/2020 Telephone [facility] [address] [place] [address] Alirio Meza MD [address] [place] [address] Social History Tobacco Use Types [...] PATIENT IS NOT EXPERIENCING ANY SYMPTOMS CURRENTLY. STRIAL TECHNOLOGY TEACHER documented in this encounter Plan of Treatment Not on file documented as of this encounter Visit Diagnoses Not on filedocumented in this encounter Additional Health Concerns Assessment Noted Time PHQ-9 Depression Total Score: 0 03/27/20 20 11:43 AM CDT documented as of this encounter Care Teams Vineyardist Relationship Specialty Start Date End Date Bertin Chacon MD [address] [place] [address] PCP - General Family Medicine 07/10/15 documented as of this encounter
--- OUTSIDE RECORDS SUMMARY | 2025-01-09 08:10 | XMS_ITS | Clinical Summary ---
Author Organization [facility] Address [facility] [place] [address] Care Team Providers Care Missile Inspector Name Role Phone Bertin Chacon MD Primary Care Provider [phone] Social History Tobacco Use Types Packs/Day Years [...] complete this topic Insurance MEDICAID Care Teams Missile Inspector Relationship Specialty Start Date End Date Bertin Chacon MD [address] [place] [address] PCP - General FAMILY PRACTICE 03/03/19
[2025-01-30 10:21] VITALS: BMI 23.0
--- NOTE | 2025-01-30 10:21 | P.SLEEP_ITS ---
Sleep Study - Home Unattended Date of Study: 01/09/25 Ordering Provider: Johanne Haji MD Interpreting Provider: Ree Gilmore DO Home Sleep Study Type: Watch PAT Height: 1.6 m Weight: 58.967 kg Body Mass Index: 23.0 Neck Circumference (inches): 12.5 [place]amo: 4 Reason for Sleep Study Trouble falling and staying asleep Sleep History The patient is a 59-year-old female with previously diagnosed sleep apnea in 2014 that had a sleep study ordered by her primary care physician for evaluation sleep disturbances. The patient snores loudly. She does have interruptions in breathing while asleep. She does choke or gasp at night. She denies having trouble breathing on her back. She does have morning headaches. She does have a dry or sore mouth / throat in the morning. She denies nocturnal heartburn. She denies nocturia. She does have trouble falling and staying asleep. She does have difficulty returning to sleep if she wakes up throughout the night. She denies feeling anxious about sleep. She does use hypnotics or sedatives. She does feel tired or sleepy during the day. She does feel tired in the morning. She denies having the urge to fall asleep during the day. She denies feeling drowsy while driving. She denies sleep paralysis, cataplexy and hypnagogic/ hypnopompic hallucinations. She denies clenching or grinding her teeth. She denies kicking or jerking her legs excessively. She denies having a restless feeling in her legs. She goes to bed at 11:00 p.m. on both weekdays and weekends. It takes her 1 hour to fall asleep. She gets 5 hours and 45 minutes of sleep on work days and 5 hours on her days off. Her sleep is somewhat restorative on her days off. He denies taking any planned naps. She denies dream enactment behavior. She denies sleep walking. She denies consuming any caffeinated beverages throughout the day. She denies tobacco and alcohol use. She exercises 1-2 nights per week. [facility] Past Medical History Medical History Mass of right axilla US 5.10.23: no mass Postmastectomy lymphedema LEFT Axillary pain us axilla (R): 5..23 negative History of breast cancer in adulthood 2016/ ER+, HERS(-), BRCA (-), WA+(r), WA(-)(L) Balance problem Memory loss age appropriate with name recall MRI 2.17.20-Several small nonspecific white matter signal hyperintensities most likely minimal microangiopathy. Chronic fatigue syndrome Fibromyalgia Lumbar radiculopathy, right Major depressive disorder, single episode, unspecified Primary osteoarthritis of right hand Tension headache Surgical History Surgical History History of tonsillectomy Hx of cholecystectomy History of hysterectomy History of bilateral mastectomy (~11/24/15) Family History Family History Father Diabetes mellitus Mother Diabetes mellitus Other Hypertension Social History Social History Smoking status: Never smoker Alcohol intake: never Substance use: never Substance use type: does not use Do You Feel Safe in your Home?: Yes Lack of Transportation: No Lack of Food: Never True Current Housing: I Have Housing Concerned About Future Housing: No Difficulty Paying Gas/Electric Bills: No Difficulty Paying for Meds: No Currently Unemployed: No Education: High School Diploma/GED Difficulty w/ Childcare or Family Care: No Medications Home Medications ?Medication ?Instructions ?Recorded ?Confirmed ?Type blood-glucose sensor (FreeStyle #6 ea 10/12/23 10/18/24 Rx Miller 3 Sensor device) azelastine 137 mcg (0.1 %) nasal 1 spray intranasal Q12H #30 mL 10/14/23 10/18/24 Rx spray paroxetine HCl 20 mg tablet 20 mg PO BID #60 tabs 02/06/24 10/18/24 Rx atorvastatin 10 mg tablet 10 mg PO QHS #90 tabs 07/16/24 10/18/24 Rx trazodone 50 mg tablet See Rx Instructions .Route 07/16/24 10/18/24 Rx .COMPLEX #30 tabs metformin 500 mg tablet,extended See Rx Instructions .Route 09/18/24 10/18/24 Rx release 24 hr .COMPLEX #90 tabs tirzepatide 5 mg/0.5 mL 5 mg (0.5 mL) subcut WEEKLY #6 mL 01/17/25 Rx subcutaneous pen injector (Casaundalilaro) losartan 25 mg tablet 25 mg PO DAILY #90 tabs 01/23/25 Rx Sleep Procedure The sleep study was completed using WatchPAT a technically adequate device with seven channels: peripheral arterial tone, actigraphy, body position, snore, respiratory movement, pulse oximetry, sleep staging, and heart rate. Prior to using the device, the patient received verbal and written instructions for its application and was provided with the help desk phone number for additional telephonic instruction with 24-hour availability of qualified personnel to answer questions. The study was scored using CMS guidelines. Sleep Architecture The total recording time is 7 hrs, 43 min. The total sleep time is 7 hrs, 5 min. Sleep latency is 20 minutes. REM latency is 230 minutes. The patient had 5 episodes of waking. Sleep architecture shows 4.7% deep sleep, 79.6% light sleep, and (as % Total Sleep Time) showed NREM (Light 79.6%; Deep 4.7%), and a 15.6% stage REM. The patient spent 0.8% of total sleep time in the supine position. Sleep efficiency was 91.79. Respiratory Analysis The overall AHI (pAHI 4%:) is 1.6. The overall AHI (pAHI 3%:) is 4.8. The central AHI is 0.4. The AHI was 5.2 in NREM and 2.7 in REM sleep. The AHI was N/A in Supine and 4.7 in Non-supine sleep. Percent of Sky Neff respirations is 0.0. Oximetry Data The oxygen desaturation index (CHIO 4%:) is 1.6. The mean saturation is 95%, and the lowest saturation is 91%. Time spent with saturation < 88% is 0.0 minutes. Snoring Profile Snoring average intensity is 41 dB. The patient snored above 45 decibels for 17.5 minutes, 4.1% of sleep time. Cardiac Profile The average pulse rate is beats per minutes. The lowest pulse rate is bpm. The highest pulse rate reported is bpm. Atrial fibrillation was not detected. Premature beats occur <0.1 per minute. Assessment and Plan Assessment and Plan (1) Sleep disturbances: Code(s): G47.9 - Sleep disorder, unspecified Status: Acute Assessment and Plan: The patient had an overall AHI of 1.4 with desaturation down to 91%. This is not consistent sleep disordered breathing. If there are further concerns for a sleep disorder, I recommend that the patient a split study with the use of a hypnotic to ensure we obtain sleep data. Data The data obtained during this sleep study is adequate for interpretation. Certification This sleep study has been reviewed by a board certified sleep medicine physician.
== END 2025-01-10 10:06 | disposition home or self-care (01) ==
LOC: ANHCSM 08:05
PROVIDERS: PCP Family Medicine; Visit Provider Family Medicine
DX: G47.33 Obstructive sleep apnea (adult) (pediatric) (principal); G47.9 Sleep disorder, unspecified
CPT/HCPCS: 95800

== ENCOUNTER 2025-07-01 10:10 | Outpatient (CLI) | payer BC, MEDICAID, SELFPAY ==
--- NOTE | ~2025-07-01 | DEXA_ITS ---
Bone Density Report Name: SEDRICK BRUNO Age: 60 Sex: Female Ethnicity: White Date of : 1965 Indication: postmenopausal; screening for osteoporosis; cancer; hysterectomy; Referring Provider: HALI SCHUMACHER Study: Bone densitometry was performed. Exam Date: July 01, 2025 Accession number: [id number] Bone Density: Region BMD T-score Z-score Classification AP Spine(L1-L4) 1.066 0.2 1.5 Normal Femoral Neck (Left) 0.689 -1.4 -0.2 Osteopenia Total Hip (Left) 0.755 -1.5 -0.6 Osteopenia Femoral Neck (Right) 0.651 -1.8 -0.5 Osteopenia Total Hip (Right) 0.855 -0.7 0.2 Normal Total Hip Mean 0.805 -1.1 -0.2 Osteopenia World Health Organization criteria for BMD impression classify patients as: Normal (T-score at or above -1.0), Osteopenia (T-score between -1.0 and -2.5), or Osteoporosis (T-score at or below -2.5). 10-year Fracture Risk(1): Major Osteoporotic Fracture 7.8% Hip Fracture 0.8% Reported Risk Factors: [place] (), Neck BMD=0.651, BMI=21.9 (1) FRAX(R) Version 3.08. Fracture probability calculated for an untreated patient. Fracture probability may be lower if the patient has received treatment. Clinical Information Provided by Patient: Has used the following medications: Vitamin D Has the following medical conditions: Cancer, Hysterectomy Patient maximum height was 63.5 Menopause Age: 43 No regular weight bearing exercise Onset of menses at age 13 Number of children 2 Impression: The patient has low bone mass, based on the Right Femoral Neck T-score. The patient has an estimated ten-year risk of hip fracture of 0.8% and an estimated ten-year risk of major fracture of 7.8%, based on the WHO FRAX algorithm. Discussion: BONE DENSITY IS LOW AT ONE OR MORE SKELETAL SITES. This patient's lowest T-score is low at one or more skeletal sites. It meets the World Health Organization's (WHO) criteria for ?low bone mass? (T-score between -1.0 and -2.5). The patient's 10-year risk of fracture as calculated by FRAX is less than the threshold where pharmacological therapy is recommended by the National Osteoporosis Foundation (NOF). However, all treatment decisions require clinical judgment and consideration of individual patient factors, including patient preferences, comorbidities, previous drug use, risk factors not captured in the FRAX model (e.g., frailty, falls, vitamin D deficiency, increased bone turnover, interval significant decline in bone density) and possible under or overestimation of fracture risk by FRAX. The patient should follow a healthful lifestyle (good nutrition with adequate calcium and vitamin D, and appropriate weight-bearing exercise). Follow-Up: Consider repeating this study in 2 to 3 years to reassess this patient's status, or sooner if there is some new clinical indication. Reported by: ZHENG on 07/01/2025 11:06:00 AM. Reviewed, dictated and finalized at location A.
--- OUTSIDE RECORDS SUMMARY | 2025-07-01 11:28 | XMS_ITS ---
Author Organization [facility] Address [address] [place] [id number] Care Team Providers Care Emergency Communications Operator Name Role Phone Bertin Chacon MD Primary Care Provider [phone] Active Problems Problem Noted Date Diagnosed Date [...]
--- OUTSIDE RECORDS SUMMARY | 2025-07-01 11:28 | XMS_ITS | Encounter Summary ---
Author Organization [facility] Address [address] [place] [address] Phone Care Team Providers Care Broacher Name Role Phone Bertin Chacon MD Primary Care Provider [phone] Encounter Details Date Type Department Care Team (Late st Contact Info) Description 09/24/2020 Telephone [facility] [address] [place] [address] Alirio Meza MD [address] [place] [address] Social History Tobacco Use Types [...] PATIENT IS NOT EXPERIENCING ANY SYMPTOMS CURRENTLY. 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
--- OUTSIDE RECORDS SUMMARY | 2025-07-01 11:28 | XMS_ITS | Clinical Summary ---
Author Organization [facility] Address [address] [place] [id number] Care Team Providers Care Financial Writer Name Role Phone Bertin Chacon MD Primary Care Provider [phone] Allergies Active Allergy Reactions Criticality Noted Date [...] Comments Blood Pressure 134/80 11/06/2020 2:27 PM CRISIS COUNSELOR Pulse 82 11/06/2020 2:27 PM CRISIS COUNSELOR Temperature 36.6 C (97.8 F) 11/06/2020 2:27 PM CRISIS COUNSELOR Respiratory Rate 18 11/06/2020 2:27 PM CRISIS COUNSELOR Oxygen Saturation 96% 11/06/2020 2:27 PM CRISIS COUNSELOR Inhaled Oxygen Concentration - - Weight 82 kg (180 lb 12.8 oz) 11/06/2020 2:27 PM CRISIS COUNSELOR Height 160 cm (5' 3) 05/26/2017 10:19 AM CDT Body Mass Index 32.03 05/26/2017 10:19 AM CDT Plan of Treatment Health Maintenance Due Date Last Done Comments Hepatitis C Virus (HCV) Screening 1965 TdaP Immunization 1966 SARS-COV-2 Immunization (#1) 1971 Hepatitis B Immunization (1 of 3 - 19+ 3-dose series) 1985 Pneumococcal Immunization (5 0+ years) (1 of 2 - PCV) 1985 Zoster Immunization (1 of 2) 1985 Cologuard 2011 Colonoscopy 2011 Colorectal Cancer Screening 2011 Immunochemical Fecal Occult Blood 2011 Influenza Immunization (#1) 06/17/202506/18, 07/13/2016 Respiratory Syncytial Virus (RSV) Immunization (Adult) (1 - 1-dose 75+ series) 2041 Human Papillomavirus (HPV) Immunization Aged Out No longer eligible b ased on patient's age to complete this topic Meningococcal Immunization (ACWY) Aged Out No longer eligible b ased on patient's age to complete this topic Rotavirus Immunization Aged Out No lo nger eligible based on patient's age to complete this topic Insurance MEDICAID [place] Care Teams Financial Writer Relationship Specialty Start Date End Date Bertin Chacon MD [address] [place] [address] PCP - General Family Medicine 07/10/15
--- OUTSIDE RECORDS SUMMARY | 2025-07-01 11:28 | XMS_ITS | Clinical Summary ---
Author Organization [facility] [employer] Address [address] [address] Care Team Providers Care Government Services Professional Name Role Phone Matthew Chacon MD Primary Care Provider [phone] Source Comments [facility] [employer],non-owned Affiliates and Associated Physician Practices is amultiple site organization consisting of ambulatory clinics and hospital sitesin [place], [place], [place] and [place]. This disclosure is being madepursuant to the Care Everywhere program and may not contain all information available regarding this patient. Last updated 18.[facility] Social History Tobacco Use Types Packs/Day Years Used Date Smoking Tobacco: Never Assessed Comments Unknown Sex and Gender Information Value Date Recorded Sex Assigned at Not on file Legal Sex Female 4:51 PM CDT Gender Identity Not on file [...] SCREENING 1965 LIPID TESTING 1965 MAMMOGRAM 1966 HIV SCREENING 1981 HEPATITIS C SCREENING 04/08/1984 DTAP/TDAP/TD VACCINES (1 - Tdap) 1985 HEPATITIS B VACCINE (1 of 3 - 19+ 3-dose series) 1985 PNEUMOCOCCAL VACCINE 50+ (1 of 1 - PCV) 2016 ZOSTER VACCINE (1 of 2) 2016 DEPRESSION SCREENING 10/17/2024 COVID-19 VACCINE (1 - 2023-2 5 season) 2025 INFLUENZA VACCINE (#1) 2025 HIB VACCINE Aged Out No longer eligi [...] age to complete this topic Insurance MEDICAID - [place] MEDICAID [facility] MEDICAID [facility] Care Teams Government Services Professional Relationship Specialty Start Date End Date Matthew Chacon MD [address] [place] [address] PCP - General Family Medicine 04/28/15
== END 2025-07-01 10:11 | disposition home or self-care (01) ==
LOC: ANHFOHIMG 10:11
PROVIDERS: PCP Family Medicine; Visit Provider Family Medicine
DX: Z78.0 Asymptomatic menopausal state (principal); M85.852 Other specified disorders of bone density and structure, left thigh; M85.851 Other specified disorders of bone density and structure, right thigh
CPT/HCPCS: 77080

== ENCOUNTER 2025-07-01 11:18 | Outpatient (CLI) | payer BC, MEDICAID, SELFPAY ==
[2025-07-01 11:50] LABS: Hemoglobin A1C 5.3 % (<5.7)
[2025-07-01 11:59] LABS: Alanine Aminotransferase 16 U/L (6-35); Albumin Level 4.3 g/dL (3.5-5.1); Alkaline Phosphatase 56 U/L (38-126); Anion Gap 7 mmol/L (4-12); Aspartate Amino Transferase 26 U/L (14-36); Bilirubin,Total 0.6 mg/dL (0.2-1.3); Blood Urea Nitrogen 17 mg/dL (7-17); Calcium 9.8 mg/dL (8.4-10.2); Carbon Dioxide 25 mmol/L (22-30); Chloride 107 mmol/L (98-107); Cholesterol 137 mg/dL (0-200); Estimated Glomerular Filt Rate > 60; Glucose 88 mg/dL (65-110); HDL Direct 61 mg/dL; Potassium 3.8 mmol/L (3.4-5.0); Sodium 139 mmol/L (137-145); Total Protein 7.2 g/dL (6.3-8.2); Triglycerides 120 mg/dL (<150)
[2025-07-01 12:02] LABS: MALB Creatinine Ratio 20.9 mg/g (0-30)
[2025-07-01 12:52] LABS: Vitamin B12 > 1000.0 pg/mL (239-931)
--- OUTSIDE RECORDS SUMMARY | 2025-07-01 13:25 | XMS_ITS ---
Author Organization [facility] Address [address] [place] [phone] Care Team Providers Care Library Customer Service Clerk Name Role Phone Bertin Chacon MD Primary Care Provider [phone] Active Problems Problem Noted Date Diagnosed Date [...]
--- OUTSIDE RECORDS SUMMARY | 2025-07-01 13:25 | XMS_ITS | Clinical Summary ---
Author Organization [facility] Address [address] [place] [phone] Care Team Providers Care Research Laboratory Technician Name Role Phone Bertin Chacon MD Primary Care Provider [phone] Allergies Active Allergy Reactions Criticality Noted Date [...] Comments Blood Pressure 134/80 11/06/2020 2:27 PM OPEN END SPINNING OPERATOR Pulse 82 11/06/2020 2:27 PM OPEN END SPINNING OPERATOR Temperature 36.6 C (97.8 F) 11/06/2020 2:27 PM OPEN END SPINNING OPERATOR Respiratory Rate 18 11/06/2020 2:27 PM OPEN END SPINNING OPERATOR Oxygen Saturation 96% 11/06/2020 2:27 PM OPEN END SPINNING OPERATOR Inhaled Oxygen Concentration - - Weight 82 kg (180 lb 12.8 oz) 11/06/2020 2:27 PM OPEN END SPINNING OPERATOR Height 160 cm (5' 3) 05/26/2017 10:19 [...] age to complete this topic Insurance MEDICAID [place] Care Teams Research Laboratory Technician Relationship Specialty Start Date End Date Bertin Chacon MD [address] [place] [address] PCP - General Family Medicine 07/10/15
--- OUTSIDE RECORDS SUMMARY | 2025-07-01 13:25 | XMS_ITS | Clinical Summary ---
Author Organization [facility] [employer] Address [address] [place] [address] Care Team Providers Care Catering Sales Manager Name Role Phone Matthew Chacon MD Primary Care Provider [phone] Source Comments [facility] [employer],non-owned Affiliates and Associated Physician Practices is amultiple site organization consisting of ambulatory clinics and hospital sitesin [place], [place], [place] and [place]. This disclosure is being madepursuant to the Care Everywhere program and may not contain all information available regarding this patient. Last updated 18.[facility] [employer] Social History Tobacco Use Types Packs/Day Years [...] this topic Insurance MEDICAID - [place] MEDICAID [facility] MEDICAID [facility] Care Teams Catering Sales Manager Relationship Specialty Start Date End Date Matthew Chacon MD [address] [place] [address] PCP - General Family Medicine 04/28/15
--- OUTSIDE RECORDS SUMMARY | 2025-07-01 13:25 | XMS_ITS | Encounter Summary ---
Author Organization [facility] Address [address] [place] [address] Phone Care Team Providers Care Cornice Upholsterer Name Role Phone Bertin Chacon MD Primary Care Provider [phone] Encounter Details Date Type Department Care Team (Late st Contact Info) Description 09/24/2020 Telephone [facility] [address] [place] [address] Alirio Meza MD [address] [place] [address] Social History Tobacco Use Types [...] PATIENT IS NOT EXPERIENCING ANY SYMPTOMS CURRENTLY. 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
== END 2025-07-01 11:19 | disposition home or self-care (01) ==
LOC: ANHLAB 11:19
PROVIDERS: PCP Family Medicine; Visit Provider Family Medicine
DX: E11.8 Type 2 diabetes mellitus with unspecified complications (principal); M85.852 Other specified disorders of bone density and structure, left thigh; M85.851 Other specified disorders of bone density and structure, right thigh
CPT/HCPCS: 36415; 80053; 80061; 82043; 82607; 83036

== ENCOUNTER 2025-09-17 13:15 | Outpatient (CLI) | payer BC, SELFPAY ==
--- NOTE | ~2025-09-17 | XR_ITS ---
EXAMINATION: [id number], 09/17/2025 13:26 TOWER CLIMBER HISTORY: underlying bone lesion? double masectomy COMPARISON: No comparisons available. Findings: No acute fracture or malalignment. No significant degenerative changes. Soft tissues unremarkable. Impression: No fracture identified. There is no gross sclerotic or lytic lesions identified however if there remains clinical concern correlation with chest CT is recommended Reviewed, dictated and finalized at location P. R CLIMBER Impression: No fracture identified. There is no gross sclerotic or lytic lesions identified however if there remains clinical concern correlation with chest CT is recomme elisha
== END 2025-09-17 13:16 | disposition home or self-care (01) ==
PROVIDERS: PCP Family Medicine; Visit Provider Family Medicine
DX: R07.89 Other chest pain (principal); Z85.3 Personal history of malignant neoplasm of breast
CPT/HCPCS: 71111

== ENCOUNTER 2025-09-26 12:53 | Outpatient (CLI) | payer BC, SELFPAY ==
--- NOTE | ~2025-09-26 | US_ITS ---
PROCEDURE(S): US breast LT limited INDICATION(S): Mastectomies with infected implant removal. Palpable abnormalities in the left chest wall. COMPARISON(S): None. TECHNIQUE: Grayscale and color Doppler imaging. FINDINGS: There are masslike areas/1 large masslike area that are hypoechoic with bright reflectors that are probably calcium seen. There is no blood flow. IMPRESSION: The areas/areas in question most likely relate to fat necrosis. Mammography of the tissue anterior to the chest wall may clarify this. Consideration may be given to biopsy or follow-up. MR is also to be considered. BI-RADS 3 - Probably benign - short-term follow-up is recommended. Reviewed, dictated and finalized at location C. IC RELATIONS ACCOUNT SUPERVISOR IMPRESSION: The areas/areas in question most likely relate to fat necrosis. Mammography of the tissue anterior to the chest wall may clarify this. Consideration may be gi michelle to biopsy or follow-up. MR is also to be considered. BI-RADS 3 - Probably benign - short-term follow-up is recommended.
== END 2025-09-26 12:54 | disposition home or self-care (01) ==
LOC: ANHFOHIMG 12:54
PROVIDERS: PCP Family Medicine; Visit Provider Surgery
DX: N64.89 Other specified disorders of breast (principal); Z90.10 Acquired absence of unspecified breast and nipple; Z85.3 Personal history of malignant neoplasm of breast; R92.8 Other abnormal and inconclusive findings on diagnostic imaging of breast
CPT/HCPCS: 76642

== ENCOUNTER 2025-10-08 06:56 | Outpatient (CLI) | payer BC, SELFPAY ==
--- NOTE | ~2025-10-08 | MR_ITS ---
MR breast BI wo/w con 10/14/2025 11:43 INSPECTOR WATER POLLUTION CONTROL INDICATION: Status post double mastectomy for left breast cancer TECHNIQUE: MRI of the breasts perform using standard protocol pre-and post IV contrast with the following sequences: Axial T2 STIR, axial T1, axial vibrant T1 with fat suppression precontrast and multiphasic postcontrast. 12 cc MultiHance administered intravenously. COMPARISON: No prior studies for comparison. FINDINGS: There are changes of bilateral mastectomy. There are no abnormalities on the precontrast sequences. There is minimal background parenchymal enhancement. No enhancing lesions following contrast administration. No areas of enhancement meeting threshold criteria on CAD analysis. No evidence of signal abnormalities in the axillary or internal mammary node distributions. IMPRESSION: 1: No evidence for malignancy. BI-RADS category 6- Known biopsy proven malignancy: Appropriate action should be taken. Reviewed, dictated and finalized at location O. ECTOR WATER POLLUTION CONTROL IMPRESSION: 1: No evidence for malignancy. BI-RADS category 6- Known biopsy proven malignancy: Appropriate action should b e taken.
== END 2025-10-08 06:57 | disposition home or self-care (01) ==
PROVIDERS: PCP Family Medicine; Visit Provider Surgery
DX: Z90.10 Acquired absence of unspecified breast and nipple (principal); N64.89 Other specified disorders of breast; Z85.3 Personal history of malignant neoplasm of breast
CPT/HCPCS: 77049; A9577; C8908